=== PATIENT | female | born 1945 | race Caucasian/White ===

== ENCOUNTER 2018-01-27 09:01 | Inpatient (IN) ==
--- NOTE | 2018-01-27 07:23 | Discharge Summary ---
Orders not resulted at time of discharge: Pending orders 01/27/18 07:21 XR knee RT 1-2V [XR] Routine H/H [Hemoglobin and Hematocrit] [HEME] Routine Date of Encounter: 01/30/18 Time of Encounter: 15:28 - Discharge Diagnosis (1) Status post total knee replacement, right Priority: Primary Status: Acute Comments: Knee Continuity: Opsite dressing, leave intact until first post-operative visit. If dressing becomes >50% saturated, contact office, remove dressing and place appropriate dressing in its place. Do not allow for dressing to get wet. Zipline in place, plan to remove at post-operative day #14-16. Total Joint Precautions x 6 weeks Apply cold therapy wrap 3-6x/day for 20 minutes at a time. Encourage ambulation throughout the day Use Incentive spirometer 10x/hour. Elevate affected extremity above heart as tolerated. Brace: Wear knee immobilizer at night until first post-operative appt. (2) Arthritis of knee, right Priority: Primary Status: Acute (3) HTN (hypertension) Priority: Secondary Status: Chronic Qualifiers: Hypertension type: essential hypertension Qualified Code(s): I10 - Essential (primary) hypertension (4) COPD (chronic obstructive pulmonary disease) Priority: Secondary Status: Chronic Qualifiers: COPD type: unspecified COPD Qualified Code(s): J44.9 - Chronic obstructive pulmonary disease, unspecified (5) Obesity Priority: Secondary Status: Chronic Qualifiers: Obesity type: due to excess calories Obesity classification: adult class 3 (BMI >= 40) Serious obesity comorbidity presence: without serious comorbidity Body mass index: BMI 40.0-44.9 Qualified Code(s): E66.01 - Morbid (severe) obesity due to excess calories; Z68.41 - Body mass index (BMI) 40.0-44.9, adult (6) Anesthesia complication Priority: Secondary Status: Chronic Qualifiers: Encounter type: initial encounter Qualified Code(s): T41.45XA - Adverse effect of unspecified anesthetic, initial encounter (7) Overactive bladder Priority: Secondary Status: Chronic - Hospital Course Hospital course: Ms. Melton is a 72 year old female status post Right TKR 01/27 . Patient had nausea - improved; otherwise with uneventful postoperative course. Stable for discharge. Patient seen at bedside, without complaints. A&O x 3 Afebrile, vital signs stable. Vital Signs Temp Pulse Resp BP Pulse Ox 01/30/18 14:54 97.6 F 69 16 98 01/30/18 12:11 97.7 F 68 130/75 98 01/30/18 10:38 97.9 F 75 16 139/62 99 01/30/18 08:12 16 94 01/30/18 06:37 98.1 F 87 16 156/53 96 01/30/18 04:33 98.4 F 93 18 155/83 94 01/30/18 00:37 191/82 01/30/18 00:35 98.7 F 71 18 165/79 95 01/29/18 20:20 17 95 01/29/18 19:30 95 01/29/18 19:07 99.2 F 89 18 140/60 93 01/29/18 16:19 98.8 F 86 18 168/78 97 Intake and Output 01/29/18 01/30/18 01/30/18 23:59 07:59 15:59 Intake Total 1000 / 1000 Output Total 300 / 300 250 / 250 300 / 300 Balance -300 / -300 -250 / -250 700 / 700 Intake: Oral 1000 / 1000 Output: Urine 300 / 300 250 / 250 300 / 300 Other: # Voids 1 1 Weight 104.3 kg Patient Weight 01/30/18 23:59 Weight 104.3 kg Labs reviewed. H/H - stable, asymptomatic Abnormal Labs 01/28/18 01/29/18 01/29/18 04:10 05:14 05:14 Hct 35.0 L Potassium 3.4 L Glucose 156 H 139 H Pain control: adequate Participating in PT. All questions and concerns addressed. Educated on use of incentive spirometer. Encouraged ambulation and proper hydration. Patient educated on post-operative restrictions and post-operative care. Assessment and plan: Continue with postoperative care Discharge plan: D/C to ECF, discharge today. - Time Spent with Patient Total time spent providing and/or coordinating discharge services: - Discharge Medications Home Medications: Albuterol Neb [Proventil Neb] 2.5 mg IH Q4HR PRN 10/28/17 [History] Albuterol Sulfate [Ventolin Hfa] 2 puff IH DAILY PRN 10/28/17 [History] Ascorbate Calcium [Vitamin C] 500 mg PO DAILY 10/28/17 [History] Budesonide/Formoterol 160/4.5 [Symbicort 160/4.5] 2 puff IH BIDR 10/28/17 [History] Docusate [Colace] 100 mg PO BID #30 capsule 10/28/17 [Rx] Montelukast [Singulair] 10 mg PO HS 10/28/17 [History] Multivitamin [One Daily Multivitamin] 1 tab PO DAILY 10/28/17 [History] Oxybutynin Chloride [Ditropan Xl] 10 mg PO DAILY 10/28/17 [History] Tiotropium [Spiriva] 1 puff IH DAILY 10/28/17 [History] Vitamin B Complex 1 cap PO DAILY 10/28/17 [History] Aspirin Enteric Coated [Aspirin EC] 325 mg PO BID #20 tablet.dr 01/27/18 [Rx] Melatonin 10 mg PO HS PRN 01/27/18 [History] OxyCODONE Immed Rel [Roxicodone 5 MG] 5 mg PO Q6HR PRN 7 Days #28 tablet 01/27/18 [Rx] Allergies/Adverse Reactions: Allergy/AdvReac Type Severity Reaction Status Date / Time meperidine [From Demerol] AdvReac Nausea Verified 01/27/18 10:25 - Patient Status Disposition: Transfer SNF Condition: Good Functional capacity at discharge: uses cane/walker Overall status at discharge: patient is progressing back to baseline - Discharge Instructions Instructions: Total Knee Replacement (DC) Follow Up With: Fidel Oliveira MD [Primary Care Provider] - - Diet and Activity Activity: as per physical therapy Diet: advance to your usual diet
[2018-01-27] MEDS ORDERED: CeFAZolin Syr 2,000MG/20 ML 2,000 MG/20 ML SYRINGE IVPB ONE (09:29)
[2018-01-27] MEDS ORDERED: Albuterol 2.5 MG/3 ML NEBULIZER IH ONE (09:29)
--- NOTE | 2018-01-27 09:29 | History & Physical Report ---
Date of Encounter: 01/27/18 Time of Encounter: 09:28 24 Hour HP Update - Instructions Instructions: If the History and Physical is less than 30 days old and was completed prior to A.M. admission and or procedure and has NOT been updated on calendar day of procedure please complete this update prior to performing procedure. - Update Patient reports changes in Medical Condition: No Changes in examination, assessment, or condition: No Changes in Medication: No Preop tests/diagnostics Reviewed: Yes Surgery Remains Indicated: Yes Consent for Planned Operative Procedure(s) Verified: No - Pre-Operative Checklist Preoperative Checklist Indicated: No Prophylactic Antibiotic Ordered: Yes Is VTE Prophylaxis Indicated?: Yes
[2018-01-27] MEDS ORDERED: Famotidine 20 MG/2 ML VIAL IVP ONE (09:46)
[2018-01-27] MEDS ORDERED: Acetaminophen IV 1,000 MG/100 ML INFUS..BTL IVPB ONE (09:46)
[2018-01-27] MEDS ORDERED: Celecoxib 100 MG CAPSULE PO ONE (09:46)
[2018-01-27] MEDS ORDERED: *HR* FentaNYL (PF) 100 MCG/2 ML VIAL ONE (10:12)
[2018-01-27] MEDS ORDERED: Dexamethasone 4 MG/ML VIAL ONE (10:13)
[2018-01-27] MEDS ORDERED: Ondansetron 4 MG/2 ML VIAL ONE (10:13)
[2018-01-27] MEDS ORDERED: *HR* Propofol 200 MG/20 ML VIAL IVP ONE (10:13)
[2018-01-27] MEDS ORDERED: *HR* Midazolam HCl 2 MG/2 ML VIAL ONE (10:13)
[2018-01-27] MEDS ORDERED: Lidocaine -MPF 2% 2 ML VIAL ONE (10:13)
--- NOTE | 2018-01-27 10:16 | Anesthesia Evaluation PreOp ---
Date of Encounter: 01/27/18 Time of Encounter: 10:15 - Past History Planned Operation: Rt TKA Cardiac History: HTN, Hyperlipidemia Pulmonary History: Smoker, COPD [facility] History: Denies Any Significant HX Other Medical History: Other ([place]) Anesthesia History: No Prior Anesthetic Complications : No Alcohol Use: none Drug use: none Medications and Allergies Albuterol Neb [Proventil Neb] 2.5 mg IH Q4HR PRN 10/28/17 [History] Albuterol Sulfate [Ventolin Hfa] 2 puff IH DAILY PRN 10/28/17 [History] Ascorbate Calcium [Vitamin C] 500 mg PO DAILY 10/28/17 [History] Budesonide/Formoterol 160/4.5 [Symbicort 160/4.5] 2 puff IH BIDR 10/28/17 [History] Docusate [Colace] 100 mg PO BID #30 capsule 10/28/17 [Rx] Montelukast [Singulair] 10 mg PO HS 10/28/17 [History] Multivitamin [One Daily Multivitamin] 1 tab PO DAILY 10/28/17 [History] OxyCODONE/APAP 5/325 [Percocet 5/325 MG] 1 each PO Q4HR PRN 6 Days #28 tablet 10/28/17 [Rx] Oxybutynin Chloride [Ditropan Xl] 10 mg PO DAILY 10/28/17 [History] Tiotropium [Spiriva] 1 puff IH DAILY 10/28/17 [History] Vitamin B Complex 1 cap PO DAILY 10/28/17 [History] Allergy/AdvReac Type Severity Reaction Status Date / Time meperidine [From Demerol] AdvReac Nausea Verified 10/28/17 12:39 - Meds/Allergy Pre-op Review Medications Reviewed: Yes Allergies Reviewed: Yes Beta Blockers on Current Med List: No Anesthesia Results - Labs O2 Sat Height 1.63 m Height 1.63 m Height 1.63 m Weight 104.326 kg Weight 104.326 kg Weight 104.326 kg O2 Sat by Pulse Oximetry 96 Vital Signs Temp Pulse Resp BP Pulse Ox 97.8 F 66 18 157/81 96 01/27/18 09:16 01/27/18 09:16 01/27/18 09:16 01/27/18 09:16 01/27/18 09:16 Laboratory Tests 01/21/18 01/21/18 01/21/18 11:35 11:35 11:35 Hgb 14.3 Hct 44.5 Plt Count 173 PT 12.2 H INR 1.1 APTT 35.7 Sodium 141 Potassium 3.8 BUN 14 Creatinine 0.78 - Imaging EKG: report reviewed (SB) Anesthesia Exam Height: 5'4 Weight: 230 lbs NPO (# of Hours): MN Pain Scale: 0 - HEENT Pupil (Motor): Pupils equal, EOMI Mallampati: III Denture Type: Upper: Complete Oral Opening: Less than or equal to 3 - [facility] LOC: Oriented [facility] Motor: Normal RUE, Normal LUE, Normal RLE, Normal LLE, Normal Face [facility] Sensory: Normal: RUE, LUE, RLE, LLE, Face - Cardiac Rhythm: Regular Murmur: None JVD: No Carotid Bruit: No - Pulmonary Breath Sounds: bilateral Clear Respiratory Effort: Symmetrical Anesthesia Assess/Plan ASA Score: 3 (HTN COPD [place]) Modified [place] Scale for Level of Consciousness: Cooperative, oriented, and tranquil Anesthetic Plan: Regional, MAC Monitoring Plan: Standard Monitors Recovery Plan: PACU (Discussed SAB with Adductor Canal Block, possible GA, agrees to proceed)
[2018-01-27] MEDS: Ringers Solution, Lactated 1,000 ML IVC SCH ×3 (10:23→21:51)
[2018-01-27] MEDS ORDERED: *HR* Morphine Sulfate/PF 10 MG/10 ML AMPUL ONE (10:34)
[2018-01-27] MEDS ORDERED: ROPIVACAINE HCL/PF 0.5% 30 ML VIAL ONE (10:35)
[2018-01-27] MEDS ORDERED: Lidocaine -MPF 1% 5 ML AMPUL ONE (10:37)
[2018-01-27] MEDS ORDERED: Propofol 500 MG/50 ML INFUS..BTL ONE (10:47)
[2018-01-27] MEDS ORDERED: Ethanol\\Acetic Acid\\Na Ace\\Ben 1,000 ML IRRIG.SOLN IR ONE (10:49)
--- NOTE | 2018-01-27 11:04 | Anesthesia Procedures ---
Date of Encounter: 01/27/18 Time of Encounter: 11:01 Procedures: Anesthesia - Nerve Block Procedure Date: 01/27/18 Time: 11:02 Allergies/Adv Reactions: meperdine Pre-op Diagnosis: right knee arthritis Surgical Procedure: Right total knee Checklist: Correct Patient Identifier, Correct procedure, History checked Correct side: Left Blood Thinner: No Monitor Applied: BP, Pulse Oximetry Supplemental Oxygen via Nasal Cannula (L/min): 2 Sedation: Versed (mg): 2 Sedation: Fentanyl (mcg): 100 Indication: Post Op Analgesia Pre-op Neuro Deficits: No Block Type: Other (adductor canal) Catheter placed: No Depth at skin (cm): 4 Sterile Technique: Yes Ultrasound used: Yes Anatomy identified: Yes Visual spread of Local: Yes Neuro Stimulation: No Blood on Needle Aspiration: No Smooth Injection of Local: Yes Pain with Injection of Local: No Prep: Chlorhexadine Needle: 21 x 100 mm Stimuplex Local: Ropivacaine, Other (decadron 8mg) Volume (cc): 30 Number of Attempts: 1 Complications: None/effective block Vitals: O2 Sat Height 1.63 m Height 1.63 m Height 1.63 m Weight 104.326 kg Weight 104.326 kg Weight 104.326 kg O2 Sat by Pulse Oximetry 98 O2 Sat by Pulse Oximetry 97 O2 Sat by Pulse Oximetry 96 O2 Sat by Pulse Oximetry 96 Vital Signs Temp Pulse Resp BP Pulse Ox 97.8 F 66 18 157/81 96 01/27/18 09:16 01/27/18 09:16 01/27/18 09:16 01/27/18 09:16 01/27/18 09:16
--- NOTE | 2018-01-27 11:09 | Anesthesia Procedures ---
Date of Encounter: 01/27/18 Time of Encounter: 10:00 Procedures: Anesthesia - Epidural/Spinal Patient ID/Chart reviewed: Yes Patient examined: Yes Supplemental Oxygen: Nasal Cannula (2) Sedation: Versed (mg): 2 Sedation: Fentanyl (mcg): 100 Site Prep: Aseptic Technique Patient position: upright Local Anesthetic: Lidocaine 1% Interspace Used: L4-L5 Loss of Resistance (TATO): No Blood: No CSF: Yes Paresthesia: No Spinal Needle Gauge: 24 Spinal Dose: 1 mg isobaric Marcaine/Duramorph 0.2 Vitals + FHT's: Vital Signs/O2 Sat/Glucose, Most Current Temp Pulse Resp BP Pulse Ox 01/27/18 10:56 60 16 153/68 98 01/27/18 10:41 67 16 152/116 97 01/27/18 10:25 18 96 01/27/18 09:16 97.8 F 66 18 157/81 96
[2018-01-27] MEDS ORDERED: *HR* PHENYLEPHRINE 1,000 MCG/10 ML SYRINGE IVP ONE (11:32)
[2018-01-27] MEDS ORDERED: Ondansetron 4 MG/2 ML VIAL IVP PRN (11:43)
--- NOTE | 2018-01-27 12:08 | Orthopedic Operative Note ---
Date of procedure: 01/27/18 Pre-op diagnosis: Right knee arthritis Post-op diagnosis: same Procedure: Procedure: Right robotic-assisted Total knee replacement Estimated blood loss: 200 cc Hardware: Metal and polyethylene replacement. Hixson Femur: 2 Tibia:3 TS insert: 13 Patella: 36 Exam Under anesthesia: 7 degrees flexion contracture 6 degree varus as calculated by the robot full flexion and no instability Procedural Notes: Grade 4 arthritic changes all 3 compartments. Operative procedure: The patient was brought to the operating room and placed on the operating room table. After general anesthesia was administered the operative knee was examined. Findings were noted in the exam under anesthesia. The operative extremity was prepped and draped in sterile surgical fashion. The patient received IV antibiotics prior to skin incision. A standard midline incision was made centered over the patella. The incision was made through the skin and subcutaneous tissue. A medial parapatellar tendon approach was performed. Care was taken to preserve tissue along the medial aspect of the patella. And to protect the patella tendon. The deep MCL was released off the medial tibia. The infra patella fat pad was excised. The patella was everted and cut was made at the level of the insertion of the quadriceps and patella tendon. The patella was sized the guide was seated and the lug holes are drilled. Knee was brought into flexion. Patient noted to have patient noted to have grade 4 arthritic changes all 3 compartments. Steinmann pins were placed in the tibia and the femur for the tibial and femoral arrays respectively. Checkpoints were also placed in the tibia and the femur for calculation purposes. The knee including the femur and the tibial registered. Osteophytes, ACL and PCL were excised at this point. Extension and flexion were assessed with a valgus stress components were adjusted on the computer to balance the knee. Femoral cuts were made first with robotic assistance, these included the anterior cut posterior cuts chamfer cuts. Tibial cut was then performed with robotic assistance as well. Bone fragments were removed, as well as the medial and lateral meniscus. The size 2 femoral guide was seated box cut was made lug holes are drilled. The size 3 tibial tray was seated and prepared with the fin cutter. Trial reduction with the 13 TS Shae revealed extension of 0 degree and 2 degree varus full flexion. No varus valgus instability. Trial reduction revealed excellent patella tracking. All trial components were removed all bony surfaces were irrigated. The Tibia was seated followed by the femur, The selected Shae size was seated and secured patella. Patient had similar findings for motion and stability. The knee was closed by the PA. The knee was then irrigated out with 2 L of pulse irrigation. The extensor mechanism was closed with #2 FiberWire suture and #2 PDS suture. The subcutaneous tissue was then irrigated and closed deep with #1 PDS suture superficially with 0 PDS suture and skin was closed with zip tie The patient was then placed in a sterile dressing and a postoperative brace extubated and transferred to recovery room in stable condition. Anesthesia: spinal Surgeon: Laron Ellis Was there an culinary assistant present: No Estimated blood loss (cc): 200 Condition: stable Disposition: PACU
[2018-01-27] MEDS ORDERED: *HR* OxyCODONE Immed Rel 5 MG TABLET PO PRN ×2 (12:20→14:12)
[2018-01-27 13:14] LABS: Hematocrit 40.1 % (35.3-44.9); Hemoglobin 12.9 g/dL (11.5-15.4)
--- NOTE | 2018-01-27 13:32 | Anesthesia Evaluation Post Op ---
Date of Encounter: 01/27/18 Time of Encounter: 13:30 - Vital Signs Vital Signs: Vital Signs/O2 Sat, Most Current Temp Pulse Resp BP Pulse Ox 97.3 F L 47 16 124/53 99 01/27/18 13:09 01/27/18 13:19 01/27/18 13:19 01/27/18 13:19 01/27/18 13:19 - Lungs Lungs: Clear Ascult./Percussion - Airway Airway: Non-obstructed - Cardiovascular Regular Rate, Baseline Rhythm - Mental Status Mental Status: Alert & Oriented, Answers Appropriately - Pain Pain Scale: 0 Pain Scale used: Numeric (1 - 10) - Nausea Vomiting Nausea Vomiting: Not Present - Hydration Hydration: Ice chips - Discharge PostOp Status: Transfer Patient to floor
[2018-01-27] MEDS ORDERED: Sennosides 8.6 MG TABLET PO PRN (14:12)
[2018-01-27] MEDS ORDERED: Naloxone 0.4 MG/ML INJ IVP PRN (14:12)
[2018-01-27] MEDS ORDERED: Albuterol 2.5 MG/3 ML NEBULIZER IH PRN (14:12)
[2018-01-27] MEDS ORDERED: MOM Conc 10 ML UD.LIQ PO PRN (14:12)
[2018-01-27] MEDS ORDERED: Temazepam 15 MG CAPSULE PO PRN (14:12)
[2018-01-27] MEDS ORDERED: Melatonin 3 MG TABLET PO PRN (14:12)
[2018-01-27] MEDS ORDERED: traMADol 50 MG TABLET PO PRN (14:12)
[2018-01-27] MEDS: Ondansetron 4 MG/2 ML VIAL IVP PRN (18:02)
[2018-01-27] MEDS: Budesonide/Formoterol 160/4.5 1 PUFF INH IH SCH (20:57)
[2018-01-27] MEDS: *HR* OxyCODONE/APAP 5/325 TABLET PO PRN (23:47)
[2018-01-28] MEDS: Ringers Solution, Lactated 1,000 ML IVC SCH (03:26)
[2018-01-28 04:50] LABS: Hematocrit 38.4 % (35.3-44.9); Hemoglobin 12.3 g/dL (11.5-15.4)
[2018-01-28 05:09] LABS: BUN/Creatinine Ratio 17 (6-26); Blood Urea Nitrogen 12 mg/dL (8-23); Calcium 9.3 mg/dL (8.6-10.3); Carbon Dioxide 28 mEq/L (23-29); Chloride 106 mEq/L (98-107); Glucose 156 mg/dL (70-105); Osmolality,Calculated 291 (280-300); Potassium 3.7 mEq/L (3.5-5.1); Sodium 139 mEq/L (136-145); eGFR For Non-African Americans > 60 (> 60)
--- NOTE | 2018-01-28 06:28 | Orthopedics Progress Note ---
Date of Encounter: 01/28/18 Time of Encounter: 06:27 Subjective Interval history: Patient was seen this morning doing well without complaints. Afebrile vital signs stable. Operative extremity: Neurovascularly intact Dressing clean dry and intact Calves nontender Assessment and plan: Continue with postoperative careThe patient with pulses that are only obtained with Doppler, neurologically she is asymptomatic foot is warm will continue to monitor will obtain Doppler exam of left lower extremity. Hematocrit 12.3 and the compartment soft Objective Vital signs: Vital Signs Temp Pulse Resp BP Pulse Ox 01/28/18 04:48 97.7 F 51 16 138/66 93 01/27/18 23:52 97.4 F L 53 18 138/66 96 01/27/18 21:38 95 01/27/18 20:58 16 97 01/27/18 19:39 97.6 F 48 16 141/62 95 01/27/18 15:16 96.7 F L 52 46 130/55 97 01/27/18 14:08 97.8 F 46 12 117/55 100 01/27/18 13:39 97.8 F 48 16 128/59 99 01/27/18 13:29 49 16 125/59 99 01/27/18 13:19 47 16 124/53 99 01/27/18 13:09 97.3 F L 53 16 127/57 98 01/27/18 12:59 55 16 117/58 91 01/27/18 12:49 56 16 118/55 92 01/27/18 12:39 97.5 F L 63 20 110/56 92 01/27/18 10:56 60 16 153/68 98 01/27/18 10:41 67 16 152/116 97 01/27/18 10:25 18 96 01/27/18 09:16 97.8 F 66 18 157/81 96 Intake and Output 01/27/18 01/27/18 01/28/18 15:59 23:59 07:59 Intake Total 1000 / 1000 100 / 100 100 / 100 Output Total 200 / 200 525 / 525 Balance 800 / 800 -425 / -425 100 / 100 Intake: IV Fluids 1000 / 1000 100 / 100 100 / 100 Lactated Ringers 1,000 ML @ 25 1000 / 1000 mls/hr IVC .Q24H [facility] Rx#: [id number] Ancef 2,000 MG In 0.9 % Sodium 100 / 100 100 / 100 Chloride 100 ML @ 200 mls/hr IVPB Q8HR [facility] Rx#:[id number] Output: Urine 225 / 225 Emesis 300 / 300 Estimated Blood Loss 200 / 200 Other: Weight 104.326 kg - Labs CBC & BMP: 01/28/18 04:10 01/28/18 04:10 Labs: Abnormal lab results Glucose 156 mg/dL (70-105) H 01/28/18 04:10 Consult Discharge Plan - Plan Referrals: Fidel Oliveira MD [Primary Care Provider] -
[2018-01-28] MEDS: Multivit/Ca/Min/Fe/FA 1 TAB TABLET PO SCH (08:04)
[2018-01-28] MEDS: Vitamin B Complex/Vit C/Vit E 1 EACH TABLET PO SCH (08:04)
[2018-01-28] MEDS: Ascorbic Acid 500 MG TABLET PO SCH (08:04)
[2018-01-28] MEDS: *HR* Enoxaparin 30 MG/0.3 ML SYRINGE SQ SCH ×2 (08:18→17:13)
[2018-01-28] MEDS: *HR* OxyCODONE/APAP 5/325 TABLET PO PRN ×3 (08:23→20:27)
[2018-01-28] MEDS: Ondansetron 4 MG/2 ML VIAL IVP PRN (09:18)
[2018-01-28] MEDS: Budesonide/Formoterol 160/4.5 1 PUFF INH IH SCH ×2 (10:59→20:33)
[2018-01-28] MEDS: Tiotropium 18 MCG inhalation IH SCH (11:00)
[2018-01-29 05:59] LABS: Hemoglobin 11.5 g/dL (11.5-15.4)
[2018-01-29] MEDS: *HR* Enoxaparin 30 MG/0.3 ML SYRINGE SQ SCH ×2 (06:05→17:59)
[2018-01-29 06:24] LABS: BUN/Creatinine Ratio 15 (6-26); Blood Urea Nitrogen 11 mg/dL (8-23); Calcium 8.9 mg/dL (8.6-10.3); Carbon Dioxide 27 mEq/L (23-29); Chloride 104 mEq/L (98-107); Glucose 139 mg/dL (70-105); Osmolality,Calculated 290 (280-300); Potassium 3.4 mEq/L (3.5-5.1); Sodium 139 mEq/L (136-145); eGFR For Non-African Americans > 60 (> 60)
[2018-01-29] MEDS: Multivit/Ca/Min/Fe/FA 1 TAB TABLET PO SCH (08:02)
[2018-01-29] MEDS: *HR* OxyCODONE/APAP 5/325 TABLET PO PRN ×3 (08:02→17:59)
[2018-01-29] MEDS: Ascorbic Acid 500 MG TABLET PO SCH (08:02)
[2018-01-29] MEDS: Vitamin B Complex/Vit C/Vit E 1 EACH TABLET PO SCH (08:02)
--- NOTE | 2018-01-29 08:04 | Orthopedics Progress Note ---
Date of Encounter: 01/29/18 Time of Encounter: 08:03 Subjective Interval history: Patient was seen this morning doing well without complaints. Afebrile vital signs stable. Operative extremity: Neurovascularly intact Dressing clean dry and intact Calves nontender Assessment and plan: Continue with postoperative care Objective Vital signs: Vital Signs Temp Pulse Resp BP Pulse Ox 01/29/18 06:51 98.2 F 99 20 168/80 97 01/29/18 03:35 97.6 F 88 16 138/71 93 01/28/18 23:04 98.6 F 61 16 158/70 97 01/28/18 20:33 18 100 01/28/18 19:13 98 F 62 16 168/68 96 01/28/18 15:38 97.8 F 52 16 121/51 100 01/28/18 11:31 98.0 F 59 16 129/65 94 01/28/18 10:59 16 95 Intake and Output 01/28/18 01/29/18 01/29/18 23:59 07:59 15:59 Intake Total 240 / 240 Output Total 700 / 700 Balance 240 / 240 -700 / -700 Intake: Oral 240 / 240 Output: Urine 700 / 700 Other: Meal Dinner Percent of Meal Consumed 75% # Voids 1 Weight 104.5 kg - Labs CBC & BMP: 01/29/18 05:14 01/29/18 05:14 Labs: Abnormal lab results Hct 35.0 % (35.3-44.9) L 01/29/18 05:14 Potassium 3.4 mEq/L (3.5-5.1) L 01/29/18 05:14 Glucose 139 mg/dL (70-105) H 01/29/18 05:14 Consult Discharge Plan - Plan Referrals: Fidel Oliveira MD [Primary Care Provider] -
[2018-01-29] MEDS: Tiotropium 18 MCG inhalation IH SCH (08:36)
[2018-01-29] MEDS: Budesonide/Formoterol 160/4.5 1 PUFF INH IH SCH ×2 (08:36→20:20)
[2018-01-30] MEDS: *HR* Enoxaparin 30 MG/0.3 ML SYRINGE SQ SCH (05:00)
[2018-01-30] MEDS: *HR* OxyCODONE/APAP 5/325 TABLET PO PRN ×3 (06:34→16:27)
[2018-01-30] MEDS: Budesonide/Formoterol 160/4.5 1 PUFF INH IH SCH (08:11)
[2018-01-30] MEDS: Tiotropium 18 MCG inhalation IH SCH (08:12)
[2018-01-30] MEDS: Multivit/Ca/Min/Fe/FA 1 TAB TABLET PO SCH (08:56)
[2018-01-30] MEDS: Vitamin B Complex/Vit C/Vit E 1 EACH TABLET PO SCH (08:56)
[2018-01-30] MEDS: Ascorbic Acid 500 MG TABLET PO SCH (08:56)
--- NOTE | 2018-01-30 10:43 | Orthopedics Progress Note ---
Date of Encounter: 01/30/18 Time of Encounter: 08:00 Subjective Interval history: Patient was seen this morning doing well without complaints. Afebrile vital signs stable. Operative extremity: Neurovascularly intact Dressing clean dry and intact Calves nontender Assessment and plan: Continue with postoperative care hct 33 Objective Vital signs: Vital Signs Temp Pulse Resp BP Pulse Ox 01/30/18 06:37 98.1 F 87 16 156/53 96 01/30/18 04:33 98.4 F 93 18 155/83 94 01/30/18 00:37 191/82 01/30/18 00:35 98.7 F 71 18 165/79 95 01/29/18 20:20 17 95 01/29/18 19:30 95 01/29/18 19:07 99.2 F 89 18 140/60 93 01/29/18 16:19 98.8 F 86 18 168/78 97 01/29/18 11:23 98.9 F 87 18 176/71 98 01/29/18 08:36 16 97 Intake and Output 01/29/18 01/30/18 01/30/18 23:59 07:59 15:59 Output Total 300 / 300 250 / 250 Balance -300 / -300 -250 / -250 Output: Urine 300 / 300 250 / 250 Other: # Voids 1 Weight 104.3 kg Patient Weight 01/30/18 23:59 Weight 104.3 kg - Labs CBC & BMP: 01/29/18 05:14 01/29/18 05:14 Labs: Abnormal lab results Hct 35.0 % (35.3-44.9) L 01/29/18 05:14 Potassium 3.4 mEq/L (3.5-5.1) L 01/29/18 05:14 Glucose 139 mg/dL (70-105) H 01/29/18 05:14 Consult Discharge Plan - Plan Referrals: Fidel Oliveira MD [Primary Care Provider] -
--- NOTE | 2018-01-30 15:27 | Physician Discharge Referral ---
ExtendedCare Referral Info Transfer To: [facility] Provider in Charge: Provider in Charge after Transfer: PCP Institutional Level of Care: Skilled - Diagnosis (1) Arthritis of knee, right Priority: Primary Status: Acute (2) Status post total knee replacement, right Status: Acute (3) HTN (hypertension) Status: Chronic (4) COPD (chronic obstructive pulmonary disease) Status: Chronic (5) Obesity Status: Chronic (6) Anesthesia complication Status: Chronic (7) Overactive bladder Status: Chronic - Transfer Medications Home Medications: Albuterol Neb [Proventil Neb] 2.5 mg IH Q4HR PRN 10/28/17 [History] Albuterol Sulfate [Ventolin Hfa] 2 puff IH DAILY PRN 10/28/17 [History] Ascorbate Calcium [Vitamin C] 500 mg PO DAILY 10/28/17 [History] Budesonide/Formoterol 160/4.5 [Symbicort 160/4.5] 2 puff IH BIDR 10/28/17 [History] Docusate [Colace] 100 mg PO BID #30 capsule 10/28/17 [Rx] Montelukast [Singulair] 10 mg PO HS 10/28/17 [History] Multivitamin [One Daily Multivitamin] 1 tab PO DAILY 10/28/17 [History] Oxybutynin Chloride [Ditropan Xl] 10 mg PO DAILY 10/28/17 [History] Tiotropium [Spiriva] 1 puff IH DAILY 10/28/17 [History] Vitamin B Complex 1 cap PO DAILY 10/28/17 [History] Aspirin Enteric Coated [Aspirin EC] 325 mg PO BID #20 tablet. 01/27/18 [Rx] Melatonin 10 mg PO HS PRN 01/27/18 [History] OxyCODONE Immed Rel [Roxicodone 5 MG] 5 mg PO Q6HR PRN 7 Days #28 tablet 01/27/18 [Rx] Allergies/Adverse Reactions: Allergy/AdvReac Type Severity Reaction Status Date / Time meperidine [From Demerol] AdvReac Nausea Verified 01/27/18 10:25 - Respiratory Orders None Smoking Cessation: Smoking cessation has been advised. For more information, call the [employer] Tobacco Quit Line at 0-443-LVXR-NOW. - Lab Orders Lab Orders: CBC - Advance Directives Code Status: Full Code - Mobility Orders Chair, Ambulate - Rehabiliation Orders Rehab Potential: Good Rehab Orders: ROM Exercises, Evaluation for Physical Therapy, Evaluation for Occupational Therapy - Treatments Skin tear care topically daily PRN per policy, May check for fecal impaction rectally daily PRN, Fleet enema rectally every other day PRN cleansing purposes List/Other: Knee Continuity: Opsite dressing, leave intact until first post-operative visit. If dressing becomes >50% saturated, contact office, remove dressing and place appropriate dressing in its place. Do not allow for dressing to get wet. Zipline in place, plan to remove at post-operative day #14-16. Total Joint Precautions x 6 weeks Apply cold therapy wrap 3-6x/day for 20 minutes at a time. Encourage ambulation throughout the day Use Incentive spirometer 10x/hour. Elevate affected extremity above heart as tolerated. Brace: Wear knee immobilizer at night until first post-operative appt. - Diet Orders Regular CERTIFICATION: I certify that the transfer of the above named patient to an Extended Care Facility is necessary for the continuing treatment of the diagnosis listed. The above information is true and accurate reflection of patient's current condition. Confidential - Redisclosure prohibited without a patient's written consent.
[2018-01-30 15:36] VITALS: BP 132/81
--- NOTE | 2018-01-30 18:13 | Event Note ---
Date of Encounter: 01/28/18 Time of Encounter: 13:30 POD#1 - Patient doing well. N/V noted - will plan to control with Zofran. Otherwise doing well.
== END 2018-01-30 16:33 | DRG 470 ==
LOC: SAMDAY 09:01 → 3NENU 13:47
PROVIDERS: ADMIT Orthopaedic Surgery; ATTEND Orthopaedic Surgery

== ENCOUNTER 2018-05-12 09:57 | Inpatient (IN) ==
--- NOTE | 2018-05-12 08:05 | Discharge Summary ---
- NOTES TO OUTPATIENT PROVIDER Notes to Outpatient Provider: New onset Afib during surgery. Cardiology consulted, added eliquis and metroprolol and recommended outpatient sleep study and stress test. Orders not resulted at time of discharge: Pending orders 05/12/18 00:01 XR knee LT 1-2V [XR] Routine H/H [Hemoglobin and Hematocrit] [HEME] Routine Date of Encounter: 05/15/18 Time of Encounter: 13:15 - Discharge Diagnosis (1) Status post total left knee replacement Priority: Primary Status: Acute (2) Osteoarthritis of left knee Priority: Primary Status: Acute Qualifiers: Osteoarthritis type: unspecified Qualified Code(s): M17.12 - Unilateral primary osteoarthritis, left knee (3) COPD (chronic obstructive pulmonary disease) Priority: Secondary Status: Chronic Qualifiers: COPD type: unspecified COPD Qualified Code(s): J44.9 - Chronic obstructive pulmonary disease, unspecified (4) HTN (hypertension) Priority: Secondary Status: Chronic Qualifiers: Hypertension type: unspecified Qualified Code(s): I10 - Essential (primary) hypertension (5) Obesity Priority: Secondary Status: Chronic Qualifiers: Obesity type: unspecified obesity type Obesity classification: adult class 2 (BMI 35 - 39.9) Serious obesity comorbidity presence: unspecified whether serious comorbidity present Body mass index: BMI 38.0-38.9 Qualified Code(s): E66.9 - Obesity, unspecified; Z68.38 - Body mass index (BMI) 38.0-38.9, adult (6) Overactive bladder Priority: Secondary Status: Chronic (7) DVT prophylaxis Priority: Secondary Status: Acute (8) PAF (paroxysmal atrial fibrillation) Priority: Secondary Status: Acute (9) Tachycardia Priority: Secondary Status: Acute (10) Anesthesia complication Priority: Secondary Status: Acute Qualifiers: Encounter type: initial encounter Qualified Code(s): T41.45XA - Adverse effect of unspecified anesthetic, initial encounter - Hospital Course Hospital course: Ms. Melton is a 73 year old female status post left TKR 05/12/18 with medical history of HTN, COPB, OAB, obesity. She was noted to develop new onset atrial fibrillation intraoperatively and cardiology was consulted at that time. They were unable to provide face to face consultation same day so hospitalist was consulted for overnight management of her afib and tachycardia. Echo was performed and showed mild left ventricular diastolic dysfunction with mild aortic and mitral valve regurgitation but no wall motion abnormalities. Financial Investment Manager recommended addition of metoprolol which will be continued upon discharge as well as eliquis for anticoagulation. Patient will have outpatient follow up with cardiology for further management and recommended sleep study and stress test. Patient participated in therapy. Stable for discharge. PCR - POD#3 Left robotic-assisted Total knee replacement 05/12/18 Patient seen at bedside, without complaints. A&O x 3. states she feels much better today. Afebrile, vital signs stable. Dressings c/d/i, no calf tenderness to palpation, good dorsiflexion of foot. sensation intact distally. Labs reviewed. H/H - 12.0/37.0 stable, asymptomatic Pain control: adequate Participated in PT. All questions and concerns addressed. Educated on use of incentive spirometer. Encouraged ambulation and proper hydration. Patient educated on post-operative restrictions and post-operative care. Assessment and plan: Continue with postoperative care Discharge plan: ECF today - Time Spent with Patient Total time spent providing and/or coordinating discharge services: - Discharge Medications Home Medications: Albuterol Neb [Proventil Neb] 2.5 mg IH Q4HR PRN 10/28/17 [History] Albuterol Sulfate [Ventolin Hfa] 2 puff IH DAILY PRN 10/28/17 [History] Ascorbate Calcium [Vitamin C] 500 mg PO DAILY 10/28/17 [History] Budesonide/Formoterol 160/4.5 [Symbicort 160/4.5] 2 puff IH BIDR 10/28/17 [History] Montelukast [Singulair] 10 mg PO HS 10/28/17 [History] Multivitamin [One Daily Multivitamin] 1 tab PO DAILY 10/28/17 [History] Oxybutynin Chloride [Ditropan Xl] 10 mg PO DAILY 10/28/17 [History] Tiotropium [Spiriva] 1 puff IH DAILY 10/28/17 [History] Vitamin B Complex 1 cap PO DAILY 10/28/17 [History] Melatonin 10 mg PO HS PRN 01/27/18 [History] Docusate [Colace] 100 mg PO BID 10 Days #20 capsule 05/12/18 [Rx] Naproxen [Naprosyn] 500 mg PO BID PRN 05/12/18 [History] OxyCODONE Immed Rel [Roxicodone 5 MG] 5 mg PO Q6HR PRN 7 Days #28 tablet 05/12/18 [Rx] Apixaban [Eliquis] 5 mg PO BID tablet 05/15/18 [Rx] Ferrous Sulfate 325 mg PO BIDWM tablet 05/15/18 [Rx] Metoprolol XL (24 HR) Succ [Toprol Xl] 25 mg PO DAILY tab.er.24h 05/15/18 [Rx] Allergies/Adverse Reactions: Allergy/AdvReac Type Severity Reaction Status Date / Time meperidine [From Demerol] AdvReac Nausea Verified 05/12/18 10:25 Date of admission: 05/12/18 Primary care physician: Fidel Oliveira MD Consults: 05/12/18 15:14 Consult to Occupational Therapy [CONS] Routine Comment: Evaluate, develop and implement POC Reason for Consult: post knee surgery Does patient have active BEDREST order?: No Is patient medically & hemodynamically stable?: Yes Consult to Orthopedic Navigator [CONS] [CONS] Routine Consult to Physical Therapy [CONS] Routine Comment: Evaluate, develop and impliment POC Reason for Consult: post knee surgery Does patient have active BEDREST order?: No Is patient medically & hemodynamically stable?: Yes Consult to Circular Saw Filer [CONS] Routine Reason for SW Consult: post op joint replacement RT Post Op Consult [CONS] Routine 05/12/18 15:43 Consult to Cardiology [CONS] Routine Comment: Consulting Provider: Cardiology Kita Reason for Consult: New onset of a-fib noted in OR Call Completed: No 05/12/18 18:39 Consult to Hospitalist [CONS] Routine Consulting Provider: Hospitalist Lizy Reason for Consult: Atrial fibrillation, new onset -- intra-operatively. Time Notified: 18:40 Call Completed: Yes Discharging clinician: Laorn Ellis Anticipated date of discharge: 05/15/18 Labs on day of discharge: Short CBC 05/15/18 Range/Units 08:58 Hgb 12.0 (11.5-15.4) g/dL Hct 37.0 (35.3-44.9) % BMP 05/15/18 Range/Units 08:58 Sodium 140 (136-145) mEq/L Potassium 3.3 L (3.5-5.1) mEq/L Chloride 105 (98-107) mEq/L Carbon Dioxide 28 (23-29) mEq/L BUN 14 (8-23) mg/dL Creatinine 0.69 (0.60-1.20) mg/dL Glucose 150 H (70-105) mg/dL Calcium 8.8 (8.6-10.3) mg/dL - Impressions Knee X-Ray 05/12/18 00:01 IMPRESSION: Recent postsurgical change of left total knee arthroplasty. D/ / Vinicius Nielson MD / Vinicius Nielson MD Interpreting Provider: Vinicius Nielson MD Echocardiogram 05/13/18 18:42 Impressions: LVEF 55%. Mild left ventricular diastolic dysfunction. Normal right ventricular structure and function. Mild aortic regurgitation. Mild mitral regurgitation. No pulmonary hypertension. Left Ventricular Wall Motion: Rest Echo Findings All wall segments showed normal motion. Findings: Study Quality * Technically challenging due to body habitus. ECG Findings * Sinus bradycardia. Left Ventricle * LVEF 55%. * Normal LV chamber size, wall thickness and function. * Mild left ventricular diastolic dysfunction. Right Ventricle * Normal right ventricular structure and function. Left Atrium * Moderately dilated left atrium. Right Atrium * Normal right atrial size. Aortic Valve * Aortic valve not well visualized. * No aortic stenosis. * Mild aortic regurgitation. Mitral Valve * Normal mitral valve structure. * No mitral stenosis. * Mild mitral regurgitation. Tricuspid Valve * Tricuspid valve not well visualized. * No tricuspid regurgitation. Pulmonic Valve * Pulmonic valve is not well visualized. Pulmonary Artery * Pulmonary artery not well visualized. Aorta * Not well visualized. Pericardium * There is no pericardial effusion present. Interatrial Septum * Interatrial septum not well evaluated. IVC * The IVC is not well evaluated. - Patient Status Disposition: Transfer SNF Condition: Good Functional capacity at discharge: uses cane/walker Overall status at discharge: patient is back to baseline - Discharge Instructions Follow Up With: Fidel Oliveira MD [Primary Care Provider] - Additional Instructions: Discharge Instructions: Total Knee Replacement Please call [facility] ([phone]), your Primary Care Physician, or report to the Emergency Room if you have any of the following symptoms: Nausea, vomiting, fever greater that 101.5, swelling, chest pain, shortness of breath, increased pain/redness/drainage/odor for your incision site, numbness/tingling, or any other concerning symptoms. ACTIVITY:Weight-bearing as tolerated. You may progress off support (crutches or walker) as tolerated. Incentive Spirometer 10 times an hour. MEDICATIONS: Upon discharge resume your home medications. Take all the medications as prescribed. Take a stool softener if taking narcotic pain medications. Stool softeners are only effective if you drink enough fluids. Drink 6-8 glass of water or fluids a day, unless this is not allowed for another health problem. Despite using stool softeners, if you haven't had a bowel movement in 3 days, please switch to a gentle laxative. Gentle laxatives are sold over the counter. You should have a bowel movement within 24 hours, if not call the office. You will be discharged from the hospital with a prescription for pain medication. You are encouraged to decrease the use of narcotic pain medication as tolerated. Should you require a refill, please call the office. [facility] prescribes narcotic pain medication for only 4-6 weeks after surgery. If you require pain medication beyond this time period, you may be referred to your Primary Care Physician or to the Pain Clinic for further evaluation. Plan ahead for refills on pain medication as many narcotics either need to be picked up at the office or mailed. It is best to call 48-72 hours in advance of needing a prescription refill so you don't run out of medication. To help control the post-operative pain, you may take NSAIDs (Aleve,Advil, Motrin, Ibuprofen, Naprosyn) or Tylenol as prescribed on the bottle in addition to the pain medication. ANTICOAGULATION (blood thinners): Continue your Aspirin, Lovenox or Coumadin as prescribed to help prevent a blood clot in the leg or in the lungs. As long as your incision remains dry and you tolerate the NSAIDs (Aleve, Advil, Motrin, ibuprofen, naprosyn), it is OK to use the NSAIDS while you are taking your anticoagulation medication. Should your incision start to drain, stop the NSAID and contact our office. Common symptoms of blood clot in the legs include: localized pain, swelling, calf tenderness, redness or discoloration of the skin. Blood clot in the lung symptoms include: shortness of breath, rapid pulse, sweating, and chest pain that worsens with deep breathing, coughing up blood, lightheadedness, feelings of anxiety. If you experience any of these symptoms notify your physician immediately, go to the emergency room, or if having trouble breathing, call 911. WOUND CARE: Leave the dressing on for 7 to 10days. You may change the dressing if it becomes saturated greater than 50%. Do not get the dressing wet at anytime. Wash your hands with antibacterial soap, rinse and dry prior to any wound care. If you have moni the visiting nurse or rehab facility can remove the stapes 10-14 days after surgery and place steri-strips across the wound. Leave the steri-strips in place until they fall off on their won. You may let wa ter from the shower run on top of the steri-strips. If you do not have a visiting nurse or rehab facility, you will need to return to the office at 10-14 days for the moni to be removed. If you have itching or redness around the dressing call the office. FOLLOW-UP: Please follow up with your surgeon in the orthopedic clinic in 4 weeks from the day of surgery. If you have moni that need to be removed, you will need to come back to the office in 10-14 days from the day of surgery. - Diet and Activity Activity: ambulate only with your walker, as per physical therapy Diet: advance to your usual diet
--- NOTE | 2018-05-12 08:08 | Physician Discharge Referral ---
ExtendedCare Referral Info Transfer To: F Provider in Charge: Ellis - Diagnosis (1) Status post total left knee replacement Priority: Primary Status: Acute (2) Osteoarthritis of left knee Priority: Primary Status: Acute (3) COPD (chronic obstructive pulmonary disease) Priority: Secondary Status: Chronic (4) HTN (hypertension) Priority: Secondary Status: Chronic (5) Obesity Priority: Secondary Status: Chronic (6) Overactive bladder Priority: Secondary Status: Chronic (7) DVT prophylaxis Priority: Secondary Status: Acute (8) PAF (paroxysmal atrial fibrillation) Priority: Secondary Status: Acute (9) Tachycardia Priority: Secondary Status: Acute (10) Anesthesia complication Priority: Secondary Status: Acute Expected Duration of Placement: <30 days Prognosis: Good Aware of Diagnosis: Patient Aware of Prognosis: Patient - Transfer Medications Home Medications: Albuterol Neb [Proventil Neb] 2.5 mg IH Q4HR PRN 10/28/17 [History] Albuterol Sulfate [Ventolin Hfa] 2 puff IH DAILY PRN 10/28/17 [History] Ascorbate Calcium [Vitamin C] 500 mg PO DAILY 10/28/17 [History] Budesonide/Formoterol 160/4.5 [Symbicort 160/4.5] 2 puff IH BIDR 10/28/17 [History] Montelukast [Singulair] 10 mg PO HS 10/28/17 [History] Multivitamin [One Daily Multivitamin] 1 tab PO DAILY 10/28/17 [History] Oxybutynin Chloride [Ditropan Xl] 10 mg PO DAILY 10/28/17 [History] Tiotropium [Spiriva] 1 puff IH DAILY 10/28/17 [History] Vitamin B Complex 1 cap PO DAILY 10/28/17 [History] Melatonin 10 mg PO HS PRN 01/27/18 [History] Docusate [Colace] 100 mg PO BID 10 Days #20 capsule 05/12/18 [Rx] Naproxen [Naprosyn] 500 mg PO BID PRN 05/12/18 [History] OxyCODONE Immed Rel [Roxicodone 5 MG] 5 mg PO Q6HR PRN 7 Days #28 tablet 05/12/18 [Rx] Apixaban [Eliquis] 5 mg PO BID tablet 05/15/18 [Rx] Ferrous Sulfate 325 mg PO BIDWM tablet 05/15/18 [Rx] Metoprolol XL (24 HR) Succ [Toprol Xl] 25 mg PO DAILY tab.er.24h 05/15/18 [Rx] Allergies/Adverse Reactions: Allergy/AdvReac Type Severity Reaction Status Date / Time meperidine [From Demerol] AdvReac Nausea Verified 05/12/18 10:25 - Respiratory Orders None Smoking Cessation: Smoking cessation has been advised. For more information, call the [place] Tobacco Quit Line at 8-728-OLXU-NOW. - Ancillary Orders May use pressure relief devices daily prn, May go on MYNOR w/family/respon green party w/meds at nurse discretion PRN, May consult with Dentist, Reordering Clerk, Search Director PRN - Advance Directives Code Status: Full Code - Mobility Orders Chair, Ambulate - Rehabiliation Orders Rehab Potential: Good Rehab Orders: ROM Exercises, Evaluation for Physical Therapy, Evaluation for Occupational Therapy Other: Opsite dressing, leave intact until first post-operative visit. If dressing becomes >50% saturated, contact office, remove dressing and place appropriate dressing in its place. Do not allow for dressing to get wet. Zipline/Tre in place, plan to remove at post-operative day #14-16. Total Joint Precautions x 6 weeks Apply cold therapy wrap 3-6x/day for 20 minutes at a time. Encourage ambulation throughout the day Use Incentive spirometer 10x/hour. Elevate affected extremity above heart as tolerated. Brace: Wear knee immobilizer at night x 2 weeks. - Treatments Skin tear care topically daily PRN per policy - Diet Orders Regular CERTIFICATION: I certify that the transfer of the above named patient to an Extended Care Facility is necessary for the continuing treatment of the diagnosis listed. The above information is true and accurate reflection of patient's current con dition. Confidential - Redisclosure prohibited without a patient's written consent.
--- NOTE | 2018-05-12 10:23 | Anesthesia Evaluation PreOp ---
Date of Encounter: 05/12/18 Time of Encounter: 10:21 - Past History Planned Operation: Left Total Knee Arthroplasty Cardiac History: Denies any Significant Hx Pulmonary History: COPD [employer] History: Denies Any Significant HX Other Medical History: Denies Any Significant HX Anesthesia History: No Prior Anesthetic Complications, Past Anesthesia Alcohol Use: rarely Drug use: none Medications and Allergies Albuterol Neb [Proventil Neb] 2.5 mg IH Q4HR PRN 10/28/17 [History] Albuterol Sulfate [Ventolin Hfa] 2 puff IH DAILY PRN 10/28/17 [History] Ascorbate Calcium [Vitamin C] 500 mg PO DAILY 10/28/17 [History] Budesonide/Formoterol 160/4.5 [Symbicort 160/4.5] 2 puff IH BIDR 10/28/17 [History] Montelukast [Singulair] 10 mg PO HS 10/28/17 [History] Multivitamin [One Daily Multivitamin] 1 tab PO DAILY 10/28/17 [History] Oxybutynin Chloride [Ditropan Xl] 10 mg PO DAILY 10/28/17 [History] Tiotropium [Spiriva] 1 puff IH DAILY 10/28/17 [History] Vitamin B Complex 1 cap PO DAILY 10/28/17 [History] Melatonin 10 mg PO HS PRN 01/27/18 [History] Aspirin Enteric Coated [Aspirin EC] 325 mg PO BID #20 tablet. 05/12/18 [Rx] Docusate [Colace] 100 mg PO BID 10 Days #20 capsule 05/12/18 [Rx] Naproxen [Naprosyn] 500 mg PO BID PRN 05/12/18 [History] OxyCODONE Immed Rel [Roxicodone 5 MG] 5 mg PO Q6HR PRN 7 Days #28 tablet 05/12/18 [Rx] Allergy/AdvReac Type Severity Reaction Status Date / Time meperidine [From Demerol] AdvReac Nausea Verified 05/12/18 10:25 - Meds/Allergy Pre-op Review Medications Reviewed: Yes Allergies Reviewed: Yes Beta Blockers on Current Med List: No Anesthesia Results - Labs Laboratory Tests 05/01/18 05/01/18 05/09/18 15:45 15:45 15:51 WBC 6.4 Hgb 13.6 Hct 43.4 Plt Count 229 PT 11.8 INR 1.0 APTT 32.8 Sodium 140 Potassium 3.8 BUN 15 Creatinine 0.78 - Imaging EKG: report reviewed (10/28/2017 SINUS BRADYCARDIA MARKED LEFT AXIS DEVIATION) Anesthesia Exam O2 Sat Height 1.63 m Height 1.63 m Weight 101.605 kg Weight 101.605 kg O2 Sat by Pulse Oximetry 99 Vital Signs Temp Pulse Resp BP Pulse Ox 97.9 F 64 18 136/61 99 05/12/18 10:30 05/12/18 10:30 05/12/18 10:30 05/12/18 10:30 05/12/18 10:30 Height: 5'4'' Weight: 224 lbs NPO (# of Hours): 8 Pain Scale: 0 Pain Scale Used: Numeric (1 - 10) - HEENT Pupil (Motor): EOMI Mallampati: III Teeth: Edentulous Denture Type: Upper: Complete, Lower: Complete Oral Opening: Greater than 3 - [employer] LOC: Oriented [employer] Motor: Normal RUE, Normal LUE, Normal RLE, Normal LLE, Normal Face [employer] Sensory: Normal: RUE, LUE, RLE, LLE, Face - Cardiac Rhythm: Regular Murmur: None - Pulmonary Breath Sounds: bilateral Clear Respiratory Effort: Symmetrical Anesthesia Assess/Plan ASA Score: 2 Level of consciousness: Cooperative, Oriented, Tranquil Anesthetic Plan: Regional Nerve Block, Spinal Regional Nerve Block Plan: Adductor canal Monitoring Plan: Standard Monitors Recovery Plan: PACU
[2018-05-12] MEDS ORDERED: CeFAZolin Syr 2,000MG/20 ML 2,000 MG/20 ML SYRINGE IVPB ONE (10:24)
[2018-05-12] MEDS ORDERED: Albuterol 2.5 MG/3 ML NEBULIZER IH ONE (10:24)
[2018-05-12] MEDS ORDERED: *HR* Midazolam HCl 2 MG/2 ML VIAL ONE (10:30)
[2018-05-12] MEDS ORDERED: *HR* FentaNYL (PF) 100 MCG/2 ML VIAL ONE (10:30)
[2018-05-12] MEDS ORDERED: Ringers Solution, Lactated 1,000 ML IVC SCH ×2 (10:30→15:14)
[2018-05-12] MEDS ORDERED: Lidocaine -MPF 1% 5 ML AMPUL ONE (10:37)
[2018-05-12] MEDS ORDERED: Bupivacaine/Clonidine Syringe 1 EACH SYRINGE ONE (10:39)
[2018-05-12] MEDS ORDERED: ROPIVACAINE HCL/PF 0.5% 30 ML VIAL ONE (10:39)
[2018-05-12] MEDS ORDERED: *HR* PHENYLEPHRINE 1,000 MCG/10 ML SYRINGE IVP ONE ×2 (10:46→12:38)
[2018-05-12] MEDS ORDERED: *HR* OxyCODONE Immed Rel 5 MG TABLET PO PRN (11:03)
[2018-05-12] MEDS ORDERED: *HR* HYDROmorphone (PF) 1 MG/ML SYRINGE IVP PRN (11:03)
--- NOTE | 2018-05-12 11:08 | History & Physical Report ---
Date of Encounter: 05/12/18 Time of Encounter: 11:07 24 Hour HP Update - Instructions Instructions: If the History and Physical is less than 30 days old and was completed prior to A.M. admission and or procedure and has NOT been updated on calendar day of procedure please complete this update prior to performing procedure. - Update Patient reports changes in Medical Condition: No Changes in examination, assessment, or condition: No Changes in Medication: No Preop tests/diagnostics Reviewed: Yes Surgery Remains Indicated: Yes Consent for Planned Operative Procedure(s) Verified: Yes - Pre-Operative Checklist Preoperative Checklist Indicated: No Prophylactic Antibiotic Ordered: Yes Is VTE Prophylaxis Indicated?: Yes
[2018-05-12] MEDS ORDERED: Ethanol\\Acetic Acid\\Na Ace\\Ben 1,000 ML IRRIG.SOLN IR ONE (11:42)
[2018-05-12] MEDS ORDERED: Total Joint Mixture (50 ml) IR ONE (11:50)
--- NOTE | 2018-05-12 11:50 | Anesthesia Procedures ---
Date of Encounter: 05/12/18 Time of Encounter: 11:34 Procedures: Anesthesia - Epidural/Spinal Patient ID/Chart reviewed: Yes Patient examined: Yes Supplemental Oxygen Rate (L/min): 2 Sedation: Versed (mg): 1 Sedation: Fentanyl (mcg): 50 Site Prep: Aseptic Technique, Sterile prep and drape, 0.5% Chlorhexidine/Alcohol Patient position: upright Local Anesthetic: Lidocaine 1% Amount of Local Anesthetic used: 3 Interspace Used: L4-L5 Blood: No CSF: Yes Paresthesia: No Spinal Needle Gauge: 25 Spinal Dose: 2mL 0.5% Bupivacaine MPF Procedure: Pt tolerated without difficulty. Pt denies any dyspnea. Vitals + FHT's: Vital Signs/O2 Sat/Glucose, Most Recent Temp Pulse Resp BP Pulse Ox 97.9 F 61 16 123/56 97 05/12/18 10:30 05/12/18 11:40 05/12/18 11:40 05/12/18 11:40 05/12/18 11:40 - Nerve Block Procedure Date: 05/12/18 Time: 11:39 Allergies/Adv Reactions: Meperidine Pre-op Diagnosis: L Knee OA Surgical Procedure: L Robotic Total Knee Arthroplasty Checklist: Correct Patient Identifier, Correct procedure, History checked Correct side: Left Blood Thinner: No Monitor Applied: EKG, BP, Pulse Oximetry Supplemental Oxygen via Nasal Cannula (L/min): 2 Indication: Post Op Analgesia Pre-op Neuro Deficits: No Block Type: Other (Adductor Canal) Catheter placed: No Sterile Technique: Yes Ultrasound used: Yes Anatomy identified: Yes Visual spread of Local: Yes Neuro Stimulation: No Blood on Needle Aspiration: No Smooth Injection of Local: Yes Pain with Injection of Local: No Prep: Chlorhexadine Needle: 21 x 100 mm Stimuplex Local: Ropivacaine (30mL 0.5% Ropivacaine with 8mg Decadron ) Number of Attempts: 1 Complications: None/effective block Comments: Block completed after Spinal Anesthetic.
[2018-05-12] MEDS ORDERED: EPHEDrine 50 MG/ML VIAL ONE (11:58)
[2018-05-12] MEDS ORDERED: Acetaminophen IV 1,000 MG/100 ML INFUS..BTL ONE (12:04)
[2018-05-12] MEDS ORDERED: Propofol 500 MG/50 ML INFUS..BTL ONE (12:11)
[2018-05-12] MEDS ORDERED: Ondansetron 4 MG/2 ML VIAL ONE (12:16)
[2018-05-12] MEDS ORDERED: Dexamethasone 4 MG/ML VIAL ONE (12:16)
[2018-05-12] MEDS ORDERED: Tranexamic Acid 1,000 MG/10 ML VIAL ONE (12:18)
[2018-05-12] MEDS ORDERED: Esmolol 100 MG/10 ML VIAL IVP ONE (12:25)
[2018-05-12] MEDS ORDERED: *HR* Magnesium Sulfate 1 GM/2 ML VIAL ONE (12:32)
[2018-05-12] MEDS ORDERED: *HR* Metoprolol 5 MG/5 ML VIAL IVP ONE ×2 (12:32→13:23)
--- NOTE | 2018-05-12 13:06 | Orthopedic Operative Note ---
Date of procedure: 05/12/18 Pre-op diagnosis: Left knee arthritis Post-op diagnosis: same Procedure: Procedure: Left robotic-assisted Total knee replacement Estimated blood loss: 200 cc Hardware: Metal and polyethylene replacement. [place] Femur: 2 Tibia: 3 TS insert: 13 Patella: 36 Exam Under anesthesia: 6 degrees flexion contracture 8 degree valgus as calculated by the robot full flexion and no instability Procedural Notes: Grade 4 arthritic changes all 3 compartments. Operative procedure: The patient was brought to the operating room and placed on the operating room table. After general anesthesia was administered the operative knee was examined. Findings were noted in the exam under anesthesia. The operative extremity was prepped and draped in sterile surgical fashion. The patient received IV antibiotics prior to skin incision. A standard midline incision was made centered over the patella. The incision was made through the skin and subcutaneous tissue. A medial parapatellar tendon approach was performed. Care was taken to preserve tissue along the medial aspect of the patella. And to protect the patella tendon. The deep MCL was released off the medial tibia. The infra patella fat pad was excised. The patella was everted and cut was made at the level of the insertion of the quadriceps and patella tendon. The patella was sized the guide was seated and the lug holes are drilled. Knee was brought into flexion. Patient noted to have grade 4 arthritic changes all 3 compartments. Steinmann pins were placed in the tibia and the femur for the tibial and femoral arrays respectively. Checkpoints were also placed in the tibia and the femur for calculation purposes. The knee including the femur and the tibial registered. Osteophytes, ACL and PCL were excised at this point. Extension and flexion were assessed with a valgus stress components were adjusted on the computer to balance the knee. Femoral cuts were made first with robotic assistance, these included the anterior cut posterior cuts chamfer cuts. Tibial cut was then performed with robotic assistance as well. Bone fragments were removed, as well as the medial and lateral meniscus. The size 2 femoral guide was seated box cut was made lug holes are drilled. The size 3 tibial tray was seated and prepared with the fin cutter. Trial reduction with the 13 TS Shae revealed extension of 0 degree and 0 varus valgus degree and full flexion. No varus valgus instability. Trial reduction revealed excellent patella tracking. All trial components were removed all bony surfaces were irrigated. The Tibia was seated followed by the femur, The selected Shae size was seated and secured patella. Patient had similar findings for motion and stability. The knee was closed by the PA. The knee was then irrigated out with 2 L of pulse irrigation. The extensor mechanism was closed with #2 FiberWire suture and #2 PDS suture. The subcutaneous tissue was then irrigated and closed deep with #1 PDS suture superficially with 0 PDS suture and skin was closed with zip tie The patient was then placed in a sterile dressing and a postoperative brace extubated and transferred to recovery room in stable condition. Complications: Patient developed atrial fibrillation with RVR during the procedure, this was discussed with anesthesia at sign out portion of the case, anesthesia reported patient stable throughout the case. But still in atrial fibrillation patient will be seen postoperatively by cardiology Anesthesia: spinal Surgeon: Laron Ellis Was there an respiratory therapy assistant present: Yes Principal Bioinformatics Specialist: Charmaine Michel Estimated blood loss (cc): 200 Condition: stable Disposition: PACU
[2018-05-12] MEDS ORDERED: *HR* Propofol 200 MG/20 ML VIAL IVP ONE (13:24)
--- NOTE | 2018-05-12 14:01 | Event Note ---
Date of Encounter: 05/12/18 Time of Encounter: 14:00 Notified intra-operatively by anesthesia that patient was in A.Fib, Rate controlled at 110bpm. Surgery otherwise no complication. Cardiology consulted. Anesthesia aware and following closely in PACU. EKG ordered.
--- NOTE | 2018-05-12 14:24 | Anesthesia Evaluation Post Op ---
Date of Encounter: 05/12/18 Time of Encounter: 14:23 - Vital Signs Vital Signs: Vital Signs/O2 Sat, Most Current Temp Pulse Resp BP Pulse Ox 98.2 F 108 18 100/64 97 05/12/18 14:08 05/12/18 14:08 05/12/18 14:08 05/12/18 14:08 05/12/18 14:08 - Lungs Lungs: Clear Ascult./Percussion - Airway Airway: Non-obstructed - Cardiovascular Regular Rate - Mental Status Mental Status: Alert & Oriented, Answers Appropriately - Pain Pain Scale: 0 Pain Scale used: Numeric (1 - 10) - Nausea Vomiting Nausea Vomiting: Not Present - Hydration Hydration: Ice chips, Has not voided - Discharge PostOp Status: Transfer Patient to floor
[2018-05-12] MEDS ORDERED: Sennosides 8.6 MG TABLET PO PRN (15:14)
[2018-05-12] MEDS ORDERED: Temazepam 15 MG CAPSULE PO PRN (15:14)
[2018-05-12] MEDS ORDERED: MOM Conc 10 ML UD.LIQ PO PRN (15:14)
[2018-05-12] MEDS ORDERED: *HR* Promethazine 25 MG/ML VIAL IVP PRN (15:14)
[2018-05-12] MEDS ORDERED: traMADol 50 MG TABLET PO PRN (15:14)
[2018-05-12] MEDS ORDERED: Naloxone 0.4 MG/ML INJ IVP PRN (15:14)
[2018-05-12] MEDS ORDERED: Ondansetron 4 MG/2 ML VIAL IVP PRN (15:14)
[2018-05-12] MEDS ORDERED: Albuterol 2.5 MG/3 ML NEBULIZER IH PRN (15:14)
[2018-05-12 15:53] LABS: Hematocrit 43.2 % (35.3-44.9); Hemoglobin 13.8 g/dL (11.5-15.4)
--- NOTE | 2018-05-12 18:42 | Event Note ---
Date of Encounter: 05/12/18 Time of Encounter: 18:40 At approx 1630, I was notified by nursing staff on 3 that patients HR was 110-140, and nurse told to notify instructor weaving, whom was consulted at approx 1430 for new consult. Patient was asymtomatic, with the exception of accelerated HR. Web Search Evaluator was notified at approx 1630 via wickpage; and responded. I was then again notified at approx 1815 that patient continued with HR 130-140, and cardiology had not been in to see patient. I called and spoke with on-call instructor weaving - , whom gave recommendations for rate control. I then spoke with to discuss plan for patient, and cardio planning to see patient in the AM. Hospitalist was then notified to aid with rate control and A.Fib monitoring, as it is after hours. I did check on patient at approx 2000, patient was stable, HR remained 110, with Lopressor started. Hospitalist had not seen patient yet. Echo ordered, and would like to hold Heparin drip until tomorrow morning. Ok to give Lovenox.
[2018-05-12] MEDS: *HR* Metoprolol 5 MG/5 ML VIAL IVP SCH ×3 (19:04→20:00)
[2018-05-12] MEDS: Ascorbic Acid 500 MG TABLET PO SCH (19:04)
--- NOTE | 2018-05-12 19:26 | Event Note ---
Date of Encounter: 05/12/18 Time of Encounter: 18:50 - Cardiology Event Note Paged regarding new intra-op Afib RVR 05/12 pm. Afib confirmed on ECG 05/12 1:58pm, clinical access VR 120s-140s mostly 130s. Called bed nurse, pt no complaint, BP been 100s-120s/60s-70s. P: - lopressor 5mg iv q5 x3 doses, then 5mg iv q4hr - if wheezing, switch lopressor to diltiazem 10mg IVx1 then drip 5-15mg/h - goal HR 90-110s - TTE - heparin drip when able when ok from surgery stand point - page me for questions overnight
[2018-05-12] MEDS: *HR* Enoxaparin 30 MG/0.3 ML SYRINGE SQ SCH (19:27)
[2018-05-12 20:35] LABS: BUN/Creatinine Ratio 17 (6-26); Blood Urea Nitrogen 14 mg/dL (8-23); Calcium 9.2 mg/dL (8.6-10.3); Carbon Dioxide 22 mEq/L (23-29); Chloride 106 mEq/L (98-107); Glucose 269 mg/dL (70-105); Osmolality,Calculated 294 (280-300); Sodium 137 mEq/L (136-145); eGFR For Non-African Americans > 60 (> 60)
[2018-05-12] MEDS: Budesonide/Formoterol 160/4.5 1 PUFF INH IH SCH (21:04)
[2018-05-12] MEDS: *HR* OxyCODONE/APAP 5/325 TABLET PO PRN (23:07)
--- NOTE | 2018-05-13 00:10 | Internal Medicine Consult Note ---
Date of Encounter: 05/12/18 Time of Encounter: 21:00 - Assessment and plan (1) Tachycardia Current Visit: Yes Status: Acute Assessment and plan: Acute tachycardia onset post status total left knee replacement today. Tachycardia began approximately 13:38 with HR of 103 and increased to HR 138 and 19:54. Patient received 25 mg IV push his metoprolol every 5 minutes apart to itch HR responded. HR 57 bpm on exam. Patient states she usually becomes bradycardic following procedures and was unclear on why she became tachycardic this time. Echocardiogram ordered. BP being monitored. Will continue IV pushes of metoprolol if patient becomes tachycardic again. Mild pain in left knee on exam. No other complaints. Patient is moderate risk for further morbidity and complications based on new onset of tachycardia, advanced age, COPD history, and current obesity. Inpatient. (2) Status post total left knee replacement Current Visit: Yes Status: Acute Assessment and plan: Status post total left knee replacement. F/u w/Dr. Ellis as OP per Orthopedic plan. PT/OT consults placed. (3) COPD (chronic obstructive pulmonary disease) Current Visit: Yes Status: Chronic Assessment and plan: Hx of chronic COPD. Stable. Continue patient's inhalers and Singulair. Hold patient's albuterol and albuterol nebs due to current tachycardia. Replaced with Xopenex IH when necessary. Qualifiers: COPD type: unspecified COPD Qualified Code(s): J44.9 - Chronic obstructive pulmonary disease, unspecified (4) Seasonal allergies Current Visit: Yes Status: Chronic Assessment and plan: Hx of chronic seasonal allergies and rhinitis. Continue pts. Singulair. (5) Obesity Current Visit: Yes Status: Chronic Assessment and plan: Hx of chronic obesity. Encourage exercise and lifestyle changes. Qualifiers: Obesity type: unspecified obesity type Obesity classification: adult class 2 (BMI 35 - 39.9) Serious obesity comorbidity presence: unspecified whether serious comorbidity present Body mass index: BMI 38.0-38.9 Qualified Code(s): E66.9 - Obesity, unspecified; Z68.38 - Body mass index (BMI) 38.0-38.9, adult (6) Overactive bladder Current Visit: Yes Status: Chronic Assessment and plan: Hx of chronic overactive bladder. Continue patient's Ditropan XL. (7) DVT prophylaxis Current Visit: Yes Status: Acute Assessment and plan: Foot pumps on bilateral LEs for DVT prophylaxis. - Time Spent With Patient Total time spent is greater than 50% in coordination of care (as documented) at patient's floor/unit and/or counseling patient: Greater than 35 minutes Internal Medicine - CN: HPI - Data of Consult Patient: new to practice Requesting Physician: Laron Ellis MD - Consult Narrative Reason for consult: Manage pts. tachycardia History of present illness: Ms. Melton is a 73 year old female w/PMH of COPD, allergic rhinitis, and overactive bladder presents for Hospitalist consultation from Orthopedic surgery d/t elevated HR post-left TKR today. Pt. developed increasing HR/tachycardia this afternoon. Pt. states she usually has low HR following procedures/surgery. Pt. denies recent illness, fever, chills, nausea, vomiting, headache, changes in vision, chest pain, shortness of breath, cough, chest congestion, unusual bleeding, abdominal pain, diarrhea, constipation, numbness, tingling, dizziness, lightheadedness, pre-syncope, or syncope. Past Med Surg Social Fam HX - Past Medical History Source: patient, old records reviewed, obtained from family Medical history: COPD, other Additional medical history: Obesity, seasonal rhinitis, overactive bladder Psychiatric history: no psych history - Past Surgical History Surgical History: cholecystectomy, knee replacement, other Additional surgical history: t&a, left leg(1984 SCREWS IN ANKLE, 1999 ANKLE FUSION) - Social History Smoking Status: Never smoker Smokeless Tobacco Status: No Alcohol use: rarely Drug use: none Current living situation: Home, With Family Activity Level: Independent ambulation Recent Out of Country Travel Within the Last 8 Weeks: No Exposure or Possible Exposure to Illness During Travel: No - Family History Mother Race: Age at : 94 Cause of : Dementia Hx Family Cancer: Yes (Breast) Hx Family Endocrine Disorder: Yes (DM) Father Race: Living Status: Age at : 91 Cause of : Old age Hx Family Endocrine Disorder: Yes (Pre-diabetes) Sister History Unknown: Yes Race: Living Status: Still Living - Constitutional Constitutional: as per HPI - EENT Eyes: as per HPI Ears: as per HPI Nose, mouth and throat: as per HPI - Breasts Breasts: as per HPI - Cardiovascular Cardiovascular ROS IM: as per HPI, other (New onset of tachycardia) - Respiratory Respiratory: as per HPI, other (SOB from COPD) - Gastrointestinal Gastrointestinal: as per HPI - Genitourinary Genitourinary: as per HPI Menstruation: as per HPI - Musculoskeletal Musculoskeletal ROS IM: as per HPI, other (Tenderness/mild pain in left knee post-replacement) - Integumentary Integumentary IM: as per HPI - Neurological Neurological ROS: as per HPI - Psychiatric Psychiatric: as per HPI - Endocrine Endocrine IM: as per HPI - Hematologic/Lymphatic Hematologic/Lymphatic: as per HPI - Allergic/Immunologic Allergic/Immunologic: as per HPI, seasonal rhinorrhea Internal Medicine - CN: Meds Albuterol Neb [Proventil Neb] 2.5 mg IH Q4HR PRN 10/28/17 [History] Albuterol Sulfate [Ventolin Hfa] 2 puff IH DAILY PRN 10/28/17 [History] Ascorbate Calcium [Vitamin C] 500 mg PO DAILY 10/28/17 [History] Budesonide/Formoterol 160/4.5 [Symbicort 160/4.5] 2 puff IH BIDR 10/28/17 [History] Montelukast [Singulair] 10 mg PO HS 10/28/17 [History] Multivitamin [One Daily Multivitamin] 1 tab PO DAILY 10/28/17 [History] Oxybutynin Chloride [Ditropan Xl] 10 mg PO DAILY 10/28/17 [History] Tiotropium [Spiriva] 1 puff IH DAILY 10/28/17 [History] Vitamin B Complex 1 cap PO DAILY 10/28/17 [History] Melatonin 10 mg PO HS PRN 01/27/18 [History] Aspirin Enteric Coated [Aspirin EC] 325 mg PO BID #20 tablet. 05/12/18 [Rx] Docusate [Colace] 100 mg PO BID 10 Days #20 capsule 05/12/18 [Rx] Naproxen [Naprosyn] 500 mg PO BID PRN 05/12/18 [History] OxyCODONE Immed Rel [Roxicodone 5 MG] 5 mg PO Q6HR PRN 7 Days #28 tablet 05/12/18 [Rx] Allergy/AdvReac Type Severity Reaction Status Date / Time meperidine [From Demerol] AdvReac Nausea Verified 05/12/18 10:25 Hospitalist - CN: Exam - Constitutional Vitals: Temp Pulse Resp BP Pulse Ox 97.6 F 57 15 133/73 94 05/12/18 23:30 05/12/18 23:30 05/12/18 23:30 05/12/18 23:30 05/12/18 23:30 General appearance IM: Present: cooperative, A&O X 3, pleasant, no acute distress, obese, answers questions appropriately Exam: Patient examined at bedside. Patient resting comfortably in bed with daughter present. Patient states she is feeling much better. On exam, patient's heart rate is now 50s. Patient denies chest pain or shortness of breath. Patient also reports minimal pain in left knee. Patient denies any other symptoms or complaints at this time. Vital signs: 97.6F temp, HR 57, RR 15, BP 133/77, SPO2 94% on room air. - Head Head exam: Present: atraumatic - Eye Eye exam: Present: PERRL, conjuntiva pink Pupils: Present: normal accommodation, PERRL - ENT ENT exam: Present: normal exam - Neck Neck exam general surgery: Present: full ROM, normal inspection - Respiratory Respiratory exam: Present: CTAB - Cardiovascular Cardiovascular exam IM: Present: +S1, +S2, tachycardia - GI/Abdominal GI/Abdominal exam IM: Present: normal bowel sounds, soft, no peritoneal signs - Rectal Rectal exam: Present: deferred - Additional comments: exam deferred. - Extremities Exam Extremities exam IM: Present: pedal edema, radial pulses palpable and symmetrical - Back Exam Back exam: Present: normal inspection - Neurological Exam Neurological exam: Present: alert, oriented X3, no focal deficits, strengths equal and symetr throughout - Psychiatric Psychiatric exam: Present: normal affect, normal mood - Skin Skin exam IM: Present: dry, intact (W/exception of left knee) Internal Medicine - CN: Reslt - Labs CBC & Chem 7: 05/12/18 15:34 05/12/18 20:05 Labs: Short CBC 05/12/18 Range/Units 15:34 Hgb 13.8 (11.5-15.4) g/dL Hct 43.2 (35.3-44.9) % BMP 05/12/18 20:05 Sodium 137 Potassium 4.0 Chloride 106 Carbon Dioxide 22 L BUN 14 Creatinine 0.81 Glucose 269 H Calcium 9.2 - Impressions Impressions Knee X-Ray 05/12/18 00:01 IMPRESSION: Recent postsurgical change of left total knee arthroplasty. D/ / Vinicius Nielson MD / Vinicius Nielson MD Interpreting Provider: Vinicius Nielson MD - Diagnostic Studies Other Images Additional comments: Impressions Knee X-Ray 05/12/18 00:01 IMPRESSION: Recent postsurgical change of left total knee arthroplasty. D/ / Vinicius Nielson MD / Vinicius Nielson MD Interpreting Provider: Vinicius Nielson MD Consult Discharge Plan - Plan Referrals: Fidel Oliveira MD [Primary Care Provider] - Prescriptions: OxyCODONE Immed Rel [Roxicodone 5 MG] 5 mg PO Q6HR PRN 7 Days #28 tablet PRN Reason: Severe Pain Aspirin Enteric Coated [Aspirin EC] 325 mg PO BID #20 tablet. Docusate [Colace] 100 mg PO BID 10 Days #20 capsule
[2018-05-13] MEDS ORDERED: Levalbuterol Neb 1.25 MG/3 ML IH PRN (00:35)
[2018-05-13] MEDS: Melatonin 3 MG TABLET PO PRN (01:34)
[2018-05-13 03:51] LABS: Hematocrit 37.7 % (35.3-44.9); Hemoglobin 12.3 g/dL (11.5-15.4)
[2018-05-13 04:11] LABS: BUN/Creatinine Ratio 23 (6-26); Blood Urea Nitrogen 17 mg/dL (8-23); Calcium 8.9 mg/dL (8.6-10.3); Carbon Dioxide 23 mEq/L (23-29); Chloride 106 mEq/L (98-107); Glucose 169 mg/dL (70-105); Osmolality,Calculated 289 (280-300); Sodium 137 mEq/L (136-145); eGFR For Non-African Americans > 60 (> 60)
[2018-05-13] MEDS: *HR* Enoxaparin 30 MG/0.3 ML SYRINGE SQ SCH ×2 (05:15→16:24)
--- NOTE | 2018-05-13 06:40 | Orthopedics Progress Note ---
Date of Encounter: 05/13/18 Time of Encounter: 06:40 Subjective Interval history: Patient was seen this morning doing well without complaints. Afebrile vital signs stable. Operative extremity: Neurovascularly intact Dressing clean dry and intact Calves nontender Assessment and plan: Continue with postoperative care In normal sinus rhythm, hematocrit 37 Objective Vital signs: Vital Signs Temp Pulse Resp BP Pulse Ox 05/13/18 05:07 97.8 F 65 15 119/67 95 05/12/18 23:30 97.6 F 57 15 133/73 94 05/12/18 21:04 16 97 05/12/18 20:35 97.7 F 61 16 143/74 97 05/12/18 19:54 138 131/67 96 05/12/18 18:18 122/69 05/12/18 14:37 104 18 117/63 98 05/12/18 14:28 106 18 103/73 98 05/12/18 14:18 112 18 122/65 98 05/12/18 14:08 98.2 F 108 18 100/64 97 05/12/18 13:58 118 18 100/63 98 05/12/18 13:48 108 18 107/61 98 05/12/18 13:38 97.9 F 103 16 102/54 99 05/12/18 12:01 59 111/49 98 05/12/18 11:55 55 16 85/38 99 05/12/18 11:52 62 16 86/32 99 05/12/18 11:40 61 16 123/56 97 05/12/18 11:21 71 16 137/68 96 05/12/18 10:30 97.9 F 64 18 136/61 99 Intake and Output 05/12/18 05/12/18 05/13/18 15:59 23:59 07:59 Intake Total 340 / 340 Output Total 300 / 300 800 / 800 Balance -300 / -300 -460 / -460 Intake: IV Fluids 100 / 100 Ancef 2,000 MG In 0.9 % Sodium 100 / 100 Chloride 100 ML @ 200 mls/hr IVPB Q8H [facility] Rx#:[id number] Oral 240 / 240 Output: Urine 800 / 800 Estimated Blood Loss 300 / 300 Other: Meal Dinner Percent of Meal Consumed 50% Weight 101.605 kg 102.1 kg Patient Weight 02/05/19 23:59 Weight 102.1 kg - Labs CBC & BMP: 05/13/18 03:18 05/13/18 03:18 Labs: Abnormal lab results Glucose 169 mg/dL (70-105) H 05/13/18 03:18 Consult Discharge Plan - Plan Referrals: Fidel Oliveira MD [Primary Care Provider] -
[2018-05-13 08:39] LABS: Magnesium 2.4 mg/dL (1.6-2.6)
[2018-05-13 08:52] LABS: Thyroid Stimulating Hormone 1.008 mcIU/mL (0.340-5.600)
[2018-05-13] MEDS: Metoprolol XL (24 HR) Succ 25 MG TAB.ER.24H PO SCH (09:00)
[2018-05-13] MEDS: Multivit/Ca/Min/Fe/FA 1 TAB TABLET PO SCH (09:00)
[2018-05-13] MEDS ORDERED: NON-FORMULARY MEDICATION 1 EACH EACH (Multivitamin [One Daily Multivitamin] 1 TAB) PO SCH (09:00)
[2018-05-13] MEDS ORDERED: NON-FORMULARY MEDICATION 1 EACH EACH (Ascorbate Calcium [Vitamin C] 500 MG) PO SCH (09:00)
[2018-05-13] MEDS: Vitamin B Complex/Vit C/Vit E 1 EACH TABLET PO SCH (09:01)
[2018-05-13] MEDS: Ascorbic Acid 500 MG TABLET PO SCH ×2 (09:01→16:23)
--- NOTE | 2018-05-13 10:12 | Cardiology Consult Note ---
<Carmencita Ambrosio - Last Filed: 05/13/18 10:09> Date of Encounter: 05/13/18 Time of Encounter: 09:00 Assessment and Plan (1) Status post total left knee replacement Current Visit: Yes Status: Acute Per cardiology: -S/p left knee replacement. -Management per primary service. (2) PAF (paroxysmal atrial fibrillation) Current Visit: Yes Status: Acute Per cardiology: -PAF noted during surgery, now in SR. Vital signs stable. -TTE pending. -K, Mg, TSH within normal limits. -Denies chest pain, palpitations. Denies bleeding or blood loss. -Denies falls or unsteady gate. -[id number] score 3 (age, gender, HTN). Recommend full dose anticoagulation, when ok with orthopedic surgeon. Consider lovenox 1mg/kg Q12 hours until TTE resulted. -Will start low dose BB. -If no significant valvular dysfunction on TTE, will valdez check NOAC. Recommend lovenox 1mg/kg Q12 hours, when ok with orthopedic surgery. -Recommend outpatient sleep study. Consider outpatient stress test. Discussion w patient/family: The assessment and plan as outlined above was discussed with the patient who expressed understanding and agreement. All questions were answered. Thank you for involving us in the care of your patient. Please call with any questions. Discussed and reviewed with . History of Present Illness Consult date: 05/12/18 Requesting physician: Laron Ellis Consult reason: new a.fib Chief complaint: knee pain History of present illness: Ms. Melton is a 73 year old female with a relevant past medical history of OA, obesity, HTN, SOB who presented to [facility] for knee replacement surgery. During surgery, anesthesia noted that patient was in a.fib RVR. Patient denies chest pain, increased shortness of breath. Denies palpitations or fluttering. Patient denies falling. States she uses her walker when she has to walk long distances, however at home walks without it. Denies unsteadiness on her feet. Patient denies bleeding or blood loss. Past Med Surg Social Fam HX - Past Medical History Attestation: Yes The following information was validated with the patient. Source: patient, old records reviewed Medical history: COPD, hypertension, other Additional medical history: Obesity, seasonal rhinitis, overactive bladder Psychiatric history: no psych history - Past Surgical History Surgical History: cholecystectomy, knee replacement, other Additional surgical history: t&a, left leg(1984 SCREWS IN ANKLE, 1999 ANKLE FUSION) - Social History Smoking Status: Never smoker Smokeless Tobacco Status: No Alcohol use: rarely Drug use: none - Family History Mother Race: Age at : 94 Cause of : Dementia Hx Family Cancer: Yes (Breast) Hx Family Endocrine Disorder: Yes (DM) Father Race: Living Status: Age at : 91 Cause of : Old age Hx Family Endocrine Disorder: Yes (Pre-diabetes) Sister History Unknown: Yes Race: Living Status: Still Living Medications and Allergies Albuterol Neb [Proventil Neb] 2.5 mg IH Q4HR PRN 10/28/17 [History] Albuterol Sulfate [Ventolin Hfa] 2 puff IH DAILY PRN 10/28/17 [History] Ascorbate Calcium [Vitamin C] 500 mg PO DAILY 10/28/17 [History] Budesonide/Formoterol 160/4.5 [Symbicort 160/4.5] 2 puff IH BIDR 10/28/17 [History] Montelukast [Singulair] 10 mg PO HS 10/28/17 [History] Multivitamin [One Daily Multivitamin] 1 tab PO DAILY 10/28/17 [History] Oxybutynin Chloride [Ditropan Xl] 10 mg PO DAILY 10/28/17 [History] Tiotropium [Spiriva] 1 puff IH DAILY 10/28/17 [History] Vitamin B Complex 1 cap PO DAILY 10/28/17 [History] Melatonin 10 mg PO HS PRN 01/27/18 [History] Aspirin Enteric Coated [Aspirin EC] 325 mg PO BID #20 tablet. 05/12/18 [Rx] Docusate [Colace] 100 mg PO BID 10 Days #20 capsule 05/12/18 [Rx] Naproxen [Naprosyn] 500 mg PO BID PRN 05/12/18 [History] OxyCODONE Immed Rel [Roxicodone 5 MG] 5 mg PO Q6HR PRN 7 Days #28 tablet 05/12/18 [Rx] Allergy/AdvReac Type Severity Reaction Status Date / Time meperidine [From Demerol] AdvReac Nausea Verified 05/12/18 10:25 All Systems Review: The remainder of the systems were reviewed and are negative - Cardiovascular Cardiovascular: as per HPI, irregular heart rhythm Physical Examination Vital Signs, Last 4 Hours Temp Pulse Resp BP Pulse Ox 05/13/18 09:00 94 05/13/18 06:40 98.1 F 67 16 114/63 94 General: Conversant, No Apparent Distress HEENT: Atraumatic, Normocephaly, Mucus Membranes Moist Neck: No JVD, Normal carotid pulses Cardiac: Reg Rate and Rhythm, Normal S1 and S2, No Murmur Lungs: Normal Breath Sounds, No Wheeze, Rales, Rhonchi Neuro: Alert and responsive, No focal deficits noted Abdomen: Soft, Non-Tender Skin: No rashes noted on visualized skin, Other (Left knee immobilzer noted. ) Musculoskeletal: No Chest Wall Tenderness Extremities: No Clubbing, No Cyanosis, No Edema, Normal Pulses Results 05/13/18 03:18 05/13/18 03:18 Lab Results Impressions Knee X-Ray 05/12/18 00:01 IMPRESSION: Recent postsurgical change of left total knee arthroplasty. D/ / Vinicius Nielson MD / Vinicius Nielson MD Interpreting Provider: Vinicius Nielson MD Active Medications Ascorbic Acid (Vitamin C) 500 mg PO BIDWM [facility] Stop: 11/11/18 17:01 Last Admin: 05/13/18 09:01 Dose: 500 mg Budesonide/Formoterol Fumarate (Symbicort) 2 puff IH BIDR [facility]; Protocol Stop: 11/11/18 22:01 Last Admin: 05/12/18 21:04 Dose: 2 puff Docusate Sodium (Colace) 100 mg PO BID [facility] Stop: 11/11/18 21:01 Last Admin: 05/13/18 09:01 Dose: 100 mg Enoxaparin Sodium (Lovenox) 30 mg SQ Q12HCO [facility]; Protocol Stop: 11/11/18 18:11 Last Admin: 05/13/18 05:15 Dose: 30 mg Ferrous Sulfate (Ferrous Sulfate) 325 mg PO BIDWM [facility] Stop: 11/11/18 17:01 Last Admin: 05/13/18 09:01 Dose: 325 mg Lactated Ringer's (Lactated Ringers) 1,000 mls @ 75 mls/hr IVC .[id number] [facility] Stop: 11/11/18 15:15 Levalbuterol HCl (Xopenex) 1.25 mg IH [id number] PRN PRN Reason: Shortness Of Breath/Wheezing Stop: 11/12/18 00:46 Magnesium Hydroxide (Milk Of Magnesia Conc) 5 ml PO HS PRN PRN Reason: Constipation Stop: 11/11/18 15:15 Melatonin (Melatonin) 9 mg PO HS PRN PRN Reason: Sleep Last Admin: 05/13/18 01:34 Dose: 9 mg Metoprolol Succinate (Toprol Xl) 12.5 mg PO DAILY [facility] Stop: 11/12/18 09:01 Last Admin: 05/13/18 09:00 Dose: 12.5 mg Metoprolol Tartrate (Lopressor) 5 mg IVP Q5MIN [facility] Stop: 05/14/18 18:46 Last Admin: 05/12/18 20:00 Dose: Not Given Montelukast Sodium (Singulair) 10 mg PO HS [facility] Stop: 11/11/18 21:01 Last Admin: 05/12/18 20:48 Dose: 10 mg Multivitamins/Calcium (Thera M Plus) 1 tab PO DAILY [facility]; Protocol Stop: 11/12/18 09:01 Last Admin: 05/13/18 09:00 Dose: 1 tab Naloxone HCl (Narcan) 0.4 mg IVP Q2MIN PRN PRN Reason: SEE COMMENTS Stop: 11/11/18 15:15 Ondansetron HCl (Zofran) 4 mg IVP Q6HR PRN PRN Reason: Nausea And Vomiting Stop: 11/11/18 15:15 Last Admin: 05/13/18 09:14 Dose: 4 mg Oxybutynin Chloride (Ditropan) 5 mg PO BID [facility] Stop: 11/12/18 09:01 Last Admin: 05/13/18 09:01 Dose: 5 mg Oxycodone HCl (Roxicodone) 10 mg PO Q4HR PRN PRN Reason: Severe pain 7-10 Stop: 11/11/18 15:15 Oxycodone/Acetaminophen (Percocet 5/325) 1 each PO Q4HR PRN PRN Reason: Moderate Pain 4-6 Stop: 11/11/18 15:15 Last Admin: 05/12/18 23:07 Dose: 1 each Promethazine HCl (Phenergan) 12.5 mg IVP Q6HR PRN PRN Reason: Nausea Stop: 11/11/18 15:15 Senna (Senna) 17.2 mg PO HS PRN PRN Reason: Constipation Stop: 11/11/18 15:15 Temazepam (Restoril) 15 mg PO HS PRN; Protocol PRN Reason: Insomnia Stop: 11/11/18 15:15 Tiotropium [place] (Spiriva) 18 mcg IH DAILYR [facility] Stop: 11/12/18 10:01 Tramadol HCl (Ultram) 50 mg PO Q6HR PRN PRN Reason: Mild Pain 1-3 Stop: 11/11/18 15:15 Vitamin B Complex/Vit C/Vit E (Stresstab) 1 each PO DAILY [facility] Stop: 11/12/18 09:01 Last Admin: 05/13/18 09:01 Dose: 1 each Laboratory Tests 05/13/18 05/13/18 03:18 03:18 Hgb 12.3 D Potassium 4.0 Creatinine 0.75 Magnesium 2.4 TSH 1.008 - Imaging and Cardiology Echo: pending - EKG Interpretation EKG results cardiology: personally reviewed (ECG with a.fib, HR 105.), other (Telemetry reviewed with average HR previous 12 hours noted to be 62, SR. PAF noted, PVCs noted.) Consult Discharge Plan - Plan Referrals: Fidel Oliveira MD [Primary Care Provider] - <Emily Grimaldo - Last Filed: 05/13/18 20:01> Date of Encounter: 05/13/18 - Attending Attestation I examined this patient and my medical decision-making was reviewed with the JOURNEYMAN MILLWRIGHT. I agree with the documented findings, disposition and treatment plan as described except to the extent set forth below. Assessment and Plan Discussion w patient/family: The assessment and plan as outlined above was discussed with the patient and/or family members who expressed understanding and agreement. All questions were answered. Thank you for involving us in the care of your patient. Please call with any questions. History of Present Illness History of present illness: Ms. Melton is a 73 year old female All Systems Review: The remainder of the systems were reviewed and are negative Physical Examination Vital Signs, Last 4 Hours Temp Pulse Resp BP Pulse Ox 05/13/18 17:54 97.9 F 62 16 156/76 98 05/13/18 16:44 97.5 F L 57 18 163/65 100 Results 05/13/18 03:18 05/13/18 03:18 Lab Results 05/12/18 05/13/18 05/13/18 20:05 03:18 03:18 Hgb 12.3 D Hct 37.7 Sodium 137 137 Potassium 4.0 4.0 Chloride 106 106 Carbon Dioxide 22 L 23 BUN 14 17 Creatinine 0.81 0.75 Glucose 269 H 169 H Calcium 9.2 8.9 Magnesium 2.4 TSH 1.008
[2018-05-13] MEDS: Tiotropium 18 MCG inhalation IH SCH (10:29)
[2018-05-13] MEDS: Budesonide/Formoterol 160/4.5 1 PUFF INH IH SCH ×2 (10:29→21:05)
--- NOTE | 2018-05-13 13:57 | Event Note ---
Date of Encounter: 05/13/18 Time of Encounter: 12:00 Consultation notes reviewed. Appears that both cardiology and hospitalist group were consulted for new onset of A. fib that happened intra-operatively. Since cardiology team could not evaluate the pt in [id number] encounter overnight, we were asked to see the patient. Patient had formal evaluation by cardiology and their recommendations. Spoke to orthopedic team, will defer the mx for afib to cardiology and sign off.
--- NOTE | 2018-05-13 16:15 | Event Note ---
Date of Encounter: 05/13/18 Time of Encounter: 13:30 PCR - POD#1 Left robotic-assisted Total knee replacement 05/12/18 Patient seen at bedside, without complaints. A&O x 3. states she is feeling better today. Afebrile, vital signs stable. She did develop new onset Afib intraop yesterday and had several episodes of tachycardia afterwards. Soda Flaker unable to provide face to face consultation while this was happening. Hospitalist consulted. tachycardia improved after receiving metoprolol and has since stabilized. Appreciate hospitalist and esthetician/skin therapist recommendations. Cardiology also added a betablocker as well and recommend outpatient sleep study and stress test. Pending echo. Labs reviewed. H/H - 12.3/37.7 stable, asymptomatic Pain control: adequate Participating in PT. All questions and concerns addressed. Educated on use of incentive spirometer. Encouraged ambulation and proper hydration. Patient educated on post-operative restrictions and post-operative care. Assessment and plan: Continue with postoperative care Discharge plan: ECF with placement on 05/15
[2018-05-13] MEDS: *HR* OxyCODONE Immed Rel 5 MG TABLET PO PRN (16:23)
[2018-05-13] MEDS: *HR* OxyCODONE/APAP 5/325 TABLET PO PRN (21:00)
--- NOTE | 2018-05-13 23:56 | Electrocardiograph Report ---
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
[2018-05-14] MEDS: *HR* OxyCODONE Immed Rel 5 MG TABLET PO PRN (01:00)
[2018-05-14 05:14] LABS: Hemoglobin 11.1 g/dL (11.5-15.4)
[2018-05-14 05:29] LABS: BUN/Creatinine Ratio 26 (6-26); Blood Urea Nitrogen 18 mg/dL (8-23); Calcium 8.8 mg/dL (8.6-10.3); Carbon Dioxide 24 mEq/L (23-29); Chloride 107 mEq/L (98-107); Glucose 138 mg/dL (70-105); Osmolality,Calculated 288 (280-300); Sodium 137 mEq/L (136-145); eGFR For Non-African Americans > 60 (> 60)
[2018-05-14] MEDS ORDERED: *HR* Enoxaparin 100 MG/ML SYRINGE SQ SCH (06:00)
--- NOTE | 2018-05-14 06:46 | Orthopedics Progress Note ---
Date of Encounter: 05/14/18 Time of Encounter: 06:46 Subjective Interval history: Patient was seen this morning doing well without complaints. Afebrile vital signs stable. Operative extremity: Neurovascularly intact Dressing clean dry and intact Calves nontender Assessment and plan: Continue with postoperative care hematocrit 34 Objective Vital signs: Vital Signs Temp Pulse Resp BP Pulse Ox 05/14/18 04:06 98.0 F 74 15 147/79 93 05/13/18 23:52 98.6 F 65 15 166/72 95 05/13/18 21:06 16 98 05/13/18 17:54 97.9 F 62 16 156/76 98 05/13/18 16:44 97.5 F L 57 18 163/65 100 05/13/18 10:42 97.9 F 73 16 124/79 95 05/13/18 09:00 94 Intake and Output 05/13/18 05/13/18 05/14/18 15:59 23:59 07:59 Intake Total 240 / 240 120 / 120 Output Total 300 / 300 Balance 240 / 240 120 / 120 -300 / -300 Intake: Oral 240 / 240 120 / 120 Output: Urine 300 / 300 Other: Meal Lunch Dinner Percent of Meal Consumed 60% 50% # Voids 1 Weight 103.2 kg Patient Weight 05/14/18 23:59 Weight 103.2 kg - Labs CBC & BMP: 05/14/18 04:49 05/14/18 04:49 Labs: Abnormal lab results Hgb 11.1 g/dL (11.5-15.4) L 05/14/18 04:49 Hct 34.0 % (35.3-44.9) L 05/14/18 04:49 Glucose 138 mg/dL (70-105) H 05/14/18 04:49 Consult Discharge Plan - Plan Referrals: Fidel Oliveira MD [Primary Care Provider] -
[2018-05-14] MEDS: Tiotropium 18 MCG inhalation IH SCH (08:09)
[2018-05-14] MEDS: Budesonide/Formoterol 160/4.5 1 PUFF INH IH SCH ×2 (08:09→21:41)
[2018-05-14] MEDS: Ascorbic Acid 500 MG TABLET PO SCH ×2 (09:09→17:17)
[2018-05-14] MEDS: Metoprolol XL (24 HR) Succ 25 MG TAB.ER.24H PO SCH (09:09)
[2018-05-14] MEDS: Multivit/Ca/Min/Fe/FA 1 TAB TABLET PO SCH (09:10)
[2018-05-14] MEDS: Vitamin B Complex/Vit C/Vit E 1 EACH TABLET PO SCH (09:10)
[2018-05-14] MEDS: *HR* OxyCODONE/APAP 5/325 TABLET PO PRN ×2 (09:17→15:25)
[2018-05-14] MEDS ORDERED: Metoprolol XL (24 HR) Succ 25 MG TAB.ER.24H PO ONE (09:24)
--- NOTE | 2018-05-14 13:05 | Cardiology Progress Note ---
Date of Encounter: 05/14/18 Time of Encounter: 13:00 Assessment and Plan (1) Status post total left knee replacement Current Visit: Yes Status: Acute Per cardiology: -S/p left knee replacement. -Management per primary service. (2) PAF (paroxysmal atrial fibrillation) Current Visit: Yes Status: Acute Per cardiology: -PAF noted during surgery, now in SR. Vital signs stable. -TTE with LVEF 55%, mild diastolic dsyfunction, mild AR, mild MR, no wall motion abnormalities noted. -K, Mg, TSH within normal limits. -Denies chest pain, palpitations. Denies bleeding or blood loss. -Denies falls or unsteady gate. -[id number] score 3 (age, gender, HTN). Recommend full dose anticoagulation, when ok with orthopedic surgeon. Consider lovenox 1mg/kg Q12 hours until TTE resulted. -Telemetry reviewed with , one short episode of ventricular arrythmia noted-will increase BB. -On therapeutic lovenox, eliquis valdez checked and noted to be $0 co-pay for patient, will start. -Continue BB. -Recommend outpatient sleep study. Consider outpatient stress test. -Cardiology will sign off, will arrange outpatient follow up. Discussion w patient/family: The assessment and plan as outlined above was discussed with the patient who expressed understanding and agreement. All questions were answered. Thank you for involving us in the care of your patient. Please call with any questions. Discussed and reviewed with . Subjective Principal diagnosis: Left knee osteoarthritis Interval history: Patient states she feels well today. Denies chest pain. Denies palpitations, fluttering. Objective Vital Signs, Last 4 Hours Temp Pulse Resp BP Pulse Ox 05/14/18 11:45 98.1 F 65 15 156/76 97 05/14/18 09:09 80 General: Conversant, No Apparent Distress HEENT: Atraumatic, Normocephaly, Mucus Membranes Moist Neck: No JVD, Normal carotid pulses Cardiac: Reg Rate and Rhythm, Normal S1 and S2, No Murmur Lungs: Normal Breath Sounds, No Wheeze, Rales, Rhonchi Neuro: Alert and responsive, No focal deficits noted Abdomen: Soft, Non-Tender Skin: No rashes noted on visualized skin Musculoskeletal: No Chest Wall Tenderness Extremities: No Clubbing, No Cyanosis, No Edema, Normal Pulses Results 05/14/18 04:49 05/14/18 04:49 Lab Results Impressions Echocardiogram 05/13/18 18:42 Impressions: LVEF 55%. Mild left ventricular diastolic dysfunction. Normal right ventricular structure and function. Mild aortic regurgitation. Mild mitral regurgitation. No pulmonary hypertension. Left Ventricular Wall Motion: Rest Echo Findings All wall segments showed normal motion. Findings: Study Quality * Technically challenging due to body habitus. ECG Findings * Sinus bradycardia. Left Ventricle * LVEF 55%. * Normal LV chamber size, wall thickness and function. * Mild left ventricular diastolic dysfunction. Right Ventricle * Normal right ventricular structure and function. Left Atrium * Moderately dilated left atrium. Right Atrium * Normal right atrial size. Aortic Valve * Aortic valve not well visualized. * No aortic stenosis. * Mild aortic regurgitation. Mitral Valve * Normal mitral valve structure. * No mitral stenosis. * Mild mitral regurgitation. Tricuspid Valve * Tricuspid valve not well visualized. * No tricuspid regurgitation. Pulmonic Valve * Pulmonic valve is not well visualized. Pulmonary Artery * Pulmonary artery not well visualized. Aorta * Not well visualized. Pericardium * There is no pericardial effusion present. Interatrial Septum * Interatrial septum not well evaluated. IVC * The IVC is not well evaluated. Active Medications Apixaban (Eliquis) 5 mg PO BID [facility] Stop: 11/13/18 21:01 Ascorbic Acid (Vitamin C) 500 mg PO BIDWM [facility] Stop: 11/11/18 17:01 Last Admin: 05/14/18 09:09 Dose: 500 mg Budesonide/Formoterol Fumarate (Symbicort) 2 puff IH BIDR [facility]; Protocol Stop: 11/11/18 22:01 Last Admin: 05/14/18 08:09 Dose: 2 puff Docusate Sodium (Colace) 100 mg PO BID [facility] Stop: 11/11/18 21:01 Last Admin: 05/14/18 09:10 Dose: 100 mg Ferrous Sulfate (Ferrous Sulfate) 325 mg PO BIDWM [facility] Stop: 11/11/18 17:01 Last Admin: 05/14/18 09:10 Dose: 325 mg Lactated Ringer's (Lactated Ringers) 1,000 mls @ 75 mls/hr IVC .[id number] [facility] Stop: 11/11/18 15:15 Levalbuterol HCl (Xopenex) 1.25 mg IH [id number] PRN PRN Reason: Shortness Of Breath/Wheezing Stop: 11/12/18 00:46 Magnesium Hydroxide (Milk Of Magnesia Conc) 5 ml PO HS PRN PRN Reason: Constipation Stop: 11/11/18 15:15 Melatonin (Melatonin) 9 mg PO HS PRN PRN Reason: Sleep Last Admin: 05/13/18 01:34 Dose: 9 mg Metoprolol Succinate (Toprol Xl) 25 mg PO DAILY [facility] Stop: 11/14/18 09:01 Metoprolol Tartrate (Lopressor) 5 mg IVP Q5MIN [facility] Stop: 05/14/18 18:46 Last Admin: 05/12/18 20:00 Dose: Not Given Montelukast Sodium (Singulair) 10 mg PO HS [facility] Stop: 11/11/18 21:01 Last Admin: 05/13/18 20:56 Dose: 10 mg Multivitamins/Calcium (Thera M Plus) 1 tab PO DAILY [facility]; Protocol Stop: 11/12/18 09:01 Last Admin: 05/14/18 09:10 Dose: 1 tab Naloxone HCl (Narcan) 0.4 mg IVP Q2MIN PRN PRN Reason: SEE COMMENTS Stop: 11/11/18 15:15 Ondansetron HCl (Zofran) 4 mg IVP Q6HR PRN PRN Reason: Nausea And Vomiting Stop: 11/11/18 15:15 Last Admin: 05/13/18 09:14 Dose: 4 mg Oxybutynin Chloride (Ditropan) 5 mg PO BID [facility] Stop: 11/12/18 09:01 Last Admin: 05/14/18 09:10 Dose: 5 mg Oxycodone HCl (Roxicodone) 10 mg PO Q4HR PRN PRN Reason: Severe pain 7-10 Stop: 11/11/18 15:15 Last Admin: 05/14/18 01:00 Dose: 10 mg Oxycodone/Acetaminophen (Percocet 5/325) 1 each PO Q4HR PRN PRN Reason: Moderate Pain 4-6 Stop: 11/11/18 15:15 Last Admin: 05/14/18 09:17 Dose: 1 each Promethazine HCl (Phenergan) 12.5 mg IVP Q6HR PRN PRN Reason: Nausea Stop: 11/11/18 15:15 Senna (Senna) 17.2 mg PO HS PRN PRN Reason: Constipation Stop: 11/11/18 15:15 Temazepam (Restoril) 15 mg PO HS PRN; Protocol PRN Reason: Insomnia Stop: 11/11/18 15:15 Tiotropium C[place] (Spiriva) 18 mcg IH DAILYR [facility] Stop: 11/12/18 10:01 Last Admin: 05/14/18 08:09 Dose: 18 mcg Tramadol HCl (Ultram) 50 mg PO Q6HR PRN PRN Reason: Mild Pain 1-3 Stop: 11/11/18 15:15 Vitamin B Complex/Vit C/Vit E (Stresstab) 1 each PO DAILY [facility] Stop: 11/12/18 09:01 Last Admin: 05/14/18 09:10 Dose: 1 each Laboratory Tests 05/14/18 05/14/18 04:49 04:49 Hgb 11.1 L Creatinine 0.69 - Imaging and Cardiology Chest Xray: report reviewed Echo: report reviewed - EKG Interpretation EKG results cardiology: other (Telemetry reviewed with average HR previous 12 hours noted to be 70, SR. PVCs, PACs noted. 1 run of ventricular arrythmia noted, lasting 9 beats.) Consult Discharge Plan - Plan Referrals: Fidel Oliveira MD [Primary Care Provider] -
--- NOTE | 2018-05-14 13:11 | Event Note ---
Date of Encounter: 05/14/18 Time of Encounter: 11:45 PCR - POD#2 Left robotic-assisted Total knee replacement 05/12/18 Patient seen at bedside, without complaints. A&O x 3. states she doesnt feel well today and thinks she is getting a head cold. Denies any chest pain, SOB, cough, fevers, N/V. Afebrile, vital signs stable. She did develop new onset Afib intraop yesterday and had several episodes of tachycardia afterwards. Dump Truck Driver unable to provide face to face consultation while this was happening. Hospitalist consulted. tachycardia improved after receiving metoprolol and has since stabilized. Appreciate hospitalist and artists' model recommendations. Cardiology also added a betablocker as well and recommend outpatient sleep study and stress test. BP elevated today - cardiology did increase metoprolol dosing for this. Labs reviewed. H/H - 11.1/34.0 stable, asymptomatic Pain control: adequate Participated in PT yesterday but she did not participate this morning due to not feeling up to it. Encouraged her to participate this afternoon and she is agreeable. All questions and concerns addressed. Educated on use of incentive spirometer. Encouraged ambulation and proper hydration. Patient educated on post-operative restrictions and post-operative care. Assessment and plan: Continue with postoperative care Discharge plan: ECF with placement on 05/15
[2018-05-14] MEDS: Apixaban 5 MG TABLET PO SCH (20:08)
[2018-05-14] MEDS: Melatonin 3 MG TABLET PO PRN (21:57)
--- NOTE | 2018-05-15 08:05 | Orthopedics Progress Note ---
Date of Encounter: 05/15/18 Time of Encounter: 08:05 Subjective Principal diagnosis: Left knee osteoarthritis Interval history: Patient was seen this morning doing well without complaints. Afebrile vital signs stable. Operative extremity: Neurovascularly intact Dressing clean dry and intact Calves nontender Assessment and plan: Continue with postoperative care Plan for discharge today Objective Vital signs: Vital Signs Temp Pulse Resp BP Pulse Ox 05/15/18 04:02 98.1 F 76 17 156/76 98 05/15/18 02:21 98.4 F 72 15 172/79 92 05/14/18 23:08 98.9 F 78 15 152/72 94 05/14/18 21:41 16 97 05/14/18 20:13 97 05/14/18 18:40 147/70 05/14/18 18:21 97.7 F 71 16 143/74 97 05/14/18 16:40 97.5 F L 67 15 182/66 97 05/14/18 11:45 98.1 F 65 15 156/76 97 05/14/18 09:09 80 05/14/18 08:09 16 173/88 98 Intake and Output 05/14/18 05/15/18 05/15/18 23:59 07:59 15:59 Intake Total 520 / 520 Output Total 550 / 550 Balance 520 / 520 -550 / -550 Intake: Oral 520 / 520 Output: Urine 550 / 550 Other: Meal Dinner Percent of Meal Consumed 90% # Voids 1 Weight 104.1 kg Patient Weight 05/15/18 23:59 Weight 104.1 kg - Labs CBC & BMP: 05/14/18 04:49 05/14/18 04:49 Labs: Abnormal lab results Hgb 11.1 g/dL (11.5-15.4) L 05/14/18 04:49 Hct 34.0 % (35.3-44.9) L 05/14/18 04:49 Glucose 138 mg/dL (70-105) H 05/14/18 04:49 Consult Discharge Plan - Plan Referrals: Fidel Oliveira MD [Primary Care Provider] -
[2018-05-15] MEDS: Budesonide/Formoterol 160/4.5 1 PUFF INH IH SCH (08:23)
[2018-05-15] MEDS: Tiotropium 18 MCG inhalation IH SCH (08:23)
[2018-05-15] MEDS ORDERED: Metoprolol XL (24 HR) Succ 25 MG TAB.ER.24H PO SCH (09:00)
[2018-05-15] MEDS ORDERED: Metoprolol XL (24 HR) Succ 25 MG TAB.ER.24H PO ONE (09:24)
[2018-05-15 09:27] LABS: BUN/Creatinine Ratio 20 (6-26); Blood Urea Nitrogen 14 mg/dL (8-23); Calcium 8.8 mg/dL (8.6-10.3); Carbon Dioxide 28 mEq/L (23-29); Chloride 105 mEq/L (98-107); Glucose 150 mg/dL (70-105); Osmolality,Calculated 293 (280-300); Potassium 3.3 mEq/L (3.5-5.1); Sodium 140 mEq/L (136-145); eGFR For Non-African Americans > 60 (> 60)
[2018-05-15] MEDS: Apixaban 5 MG TABLET PO SCH (09:34)
[2018-05-15] MEDS: Vitamin B Complex/Vit C/Vit E 1 EACH TABLET PO SCH (09:34)
[2018-05-15] MEDS: Multivit/Ca/Min/Fe/FA 1 TAB TABLET PO SCH (09:34)
[2018-05-15] MEDS: Ascorbic Acid 500 MG TABLET PO SCH (09:35)
[2018-05-15 15:23] VITALS: BP 145/76
[2018-05-15] MEDS: *HR* OxyCODONE/APAP 5/325 TABLET PO PRN (15:24)
--- NOTE | 2018-05-16 09:45 | Electrocardiograph Report ---
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
== END 2018-05-15 16:01 | DRG 470 ==
LOC: SAMDAY 09:57 → 3NENU 14:45
PROVIDERS: ADMIT Orthopaedic Surgery; ATTEND Orthopaedic Surgery